=== PATIENT | female | born 1965 | race Caucasian/White ===

== ENCOUNTER → 2018-11-20 | Outpatient (CLI) | payer BC ==
--- NOTE | 2018-11-20 11:12 | CT ---
EXAMINATION TYPE: CT abdomen pelvis w con DATE OF EXAM: 11/20/2018 HISTORY: LLQ pain CT DLP: 1057.1mGycm Automated Exposure Control for Dose Reduction was Utilized. CONTRAST: CT scan of the abdomen and pelvis is performed with IV Contrast, patient injected with 100 mL of Isov ue 300. COMPARISON: None. FINDINGS: LUNG BASES: No significant abnormality is appreciated. LIVER/GB: Somewhat contracted gallbladder. PANCREAS: No significant abnormality is seen. SPLEEN: No significant abnormality is seen. ADRENALS: No significant abnormality is seen. KIDNEYS: Subcentimeter simple appearing cyst lower pole of the right kidney axial image 38 series 5 i s present. BOWEL: Oral contrast reaches level of rectum. No suspicious small or large bowel dilatation. Normal c ontrast-filled appendix ascends from cecum. No significant diverticular disease. Mild wall thickening in the sigmoid colon is present. UTERUS/ADNEXA: Uterus is surgically absent or markedly atrophic. Scattered pelvic phleboliths. Left o vary is 1.9 cm round low dense lesion on axial image 65. The remnant right ovary normal in size image 61. LYMPH NODES: No greater than 1cm abdominal or pelvic lymph nodes are appreciated. OSSEOUS STRUCTURES: No significant abnormality is seen. OTHER: No significant additional abnormality is seen. IMPRESSION: 1. No CT evidence for diverticulosis or acute diverticulitis. Possible mild colitis of the sigmoid co nanette of the pelvis. Correlate clinically. 2. There is 1.9 cm rounded low dense lesion left ovary, this is abnormal finding in a postmenopausal female. Follow-up pelvic ultrasound advised to better evaluate and characterize.
== END ==
LOC: RADCTMAIN 07:43 → MERGE 09:20
PROVIDERS: ATTEND Internal Medicine
DX: N83.202 Unspecified ovarian cyst, left side (principal); Z78.0 Asymptomatic menopausal state; Z88.5 Allergy status to narcotic agent
CPT/HCPCS: 74177; Q9967 ×2

== ENCOUNTER 2020-05-12 13:54 | Emergency (ER) | payer BC ==
[2020-05-12 13:59] VITALS: BP 134/84; PULSE 60; RESP 18; TEMP 97.9
[2020-05-12 14:42] LABS: Appearance,Urine Cloudy (Clear); Bacteria,Urine Rare /hpf; Bilirubin,Urine Negative (Negative); Blood,Urine Negative (Negative); Color,Urine Yellow; Glucose,Urine (UA) Negative (Negative); Ketones,Urine 1+ (Negative); Leukocyte Esterase,Urine Negative (Negative); Mucus,Urine Rare /hpf; Nitrite,Urine Negative (Negative); Protein,Urine Negative (Negative); Specific Gravity,Urine 1.014 (1.001-1.035); Squamous Epithelial Cell,Urine <1 /hpf (0-4); Urobilinogen,Urine <2.0 mg/dL (<2.0); WBC,Urine 1 /hpf (0-5)
[2020-05-12] MEDS ORDERED: KETOROLAC 15 MG/ML 1 ML VIAL IVP STA (15:00)
[2020-05-12] MEDS ORDERED: ONDANSETRON 4 MG/2 ML VIAL IVP STA (15:00)
--- NOTE | 2020-05-12 15:03 | ED ---
Abdominal Pain HPI - General Chief Complaint: Abdominal Pain Stated Complaint: Abdominal Pain,[place] Time Seen by Provider: 05/12/20 14:47 Source: patient Mode of arrival: ambulatory Limitations: no limitations - History of Present Illness Initial Comments: D4-year[age] female history of ovarian cysts, hypertension and previous kidney stone presenting today for chief complaint of left flank pain. Patient states for the last week and a half she has had left side mid back pain, that sometimes radiates towards the abdomen. Patient states the pain is at maximal intensity she has nausea and occasional vomiting. Patient states the pain is colicky comi ng and going and not always present. Patient states she has had a little bit of frequency but denies dysuria or urgency. Patient denies noting hematuria--states she drinks a lot of fluids daily. Patient denies any fevers. Patient denies a chest pain shortness of breath. Patient states she did have her first dose of the Desiree seen on 05/03/2020. Patient has no additional complaints nor concerns and appears well nontoxic on arrival, no distress. The UA done in advanced triage appears overall unremarkable. - Related Data Previous Rx's Medication Instructions Recorded Amoxic-Pot Clav 875-125Mg 1 tab PO Q12HR 10 Days #20 tab 05/12/20 [Augmentin 875-125] Ondansetron Odt [Zofran Odt] 4 mg PO Q8HR PRN 7 Days #21 tab 05/12/20 Allergies Allergy/AdvReac Type Severity Reaction Status Date / Time No Known Allergies Allergy Verified 05/12/20 13:59 Review of Systems ROS Statement: Those systems with pertinent positive or pertinent negative responses have been documented in the HPI. ROS Other: All systems not noted in ROS Statement are negative. Past Medical History Past Medical History: Hypertension Additional Past Medical History / Comment(s): ovarian cyst, History of Any Multi-Drug Resistant Organisms: None Reported Past Surgical History: Hysterectomy Additional Past Surgical History / Comment(s): left fifth finger, Past Psychological History: Depression Smoking Status: Current every day smoker Past Alcohol Use History: None Reported Past Drug Use History: Marijuana General Exam - General Exam Comments Initial Comments: General: The patient is awake and alert, in no distress Eye: +3 mm pupils are equal, round and reactive to light, extra-ocular movements are intact. No nystagmus. There is normal conjunctiva bilaterally. No signs of icterus. Ears, nose, mouth and throat: There are moist mucous membranes and no oral lesions. Neck: The neck is supple, there is no tenderness or JVD. Cardiovascular: There is a regular rate and rhythm. No murmur, rub or gallop is appreciated. Respiratory: Lungs are clear to auscultation, respirations are non-labored, breath sounds are equal. No wheezes, stridor, rales, or rhonchi. Gastrointestinal: Soft, non-distended, mild LLQ tenderness to palpation of the abdomen without masses or organomegaly noted. There is no rebound or guarding present. No CVA tenderness. Musculoskeletal: Normal ROM, no tenderness. Strength 5/5. Sensation intact. Radial pulses equal bilaterally 2+. Neurological: A&O x 3. CN II-XII intact grossly, There are no obvious motor or sensory deficits. Coordination appears grossly intact. Speech is normal. Skin: Skin is warm and dry and no rashes or lesions are noted. Psychiatric: Cooperative, appropriate mood & affect, normal judgment. Limitations: no limitations Course Vital Signs 05/12/20 13:55 Temperature 97.9 F Pulse Rate 60 Respiratory 18 Rate Blood Pressure 134/84 O2 Sat by Pulse 95 Oximetry Medical Decision Making - Medical Decision Making Mild leukocytosis as well as mild hyponatremia. Otherwise laboratory studies are stable with no critical values. Patient CT abdomen and pelvis reveals a uncomplicated colitis. Patient's pain controlled she appears comfortable at nausea. She has no fevers. Denies any bloody diarrhea. 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 Patient is agreeable to this care plan as well as discharge at this time. Return parameters as well as competitions of colitis were discussed at length with patient verbalized understanding and was discharged appearing well - Lab Data Result diagrams: 05/12/20 15:10 05/12/20 15:10 Lab Results 05/12/20 05/12/20 05/12/20 Range/Units 14:23 15:10 15:10 WBC 13.0 H (3.8-10.6) k/uL RBC 4.70 (3.80-5.40) m/uL Hgb 14.8 (11.4-16.0) gm/dL Hct 44.0 (34.0-46.0) % MCV 93.5 (80.0-100.0) fL MCH 31.5 (25.0-35.0) pg MCHC 33.7 (31.0-37.0) g/dL RDW 13.5 (11.5-15.5) % Plt Count 448 (150-450) k/uL MPV 8.3 Neutrophils % 84 % Lymphocytes % 11 % Monocytes % 3 % Eosinophils % 1 % Basophils % 0 % Neutrophils # 10.8 H (1.3-7.7) k/uL Lymphocytes # 1.4 (1.0-4.8) k/uL Monocytes # 0.4 (0-1.0) k/uL Eosinophils # 0.2 (0-0.7) k/uL Basophils # 0.1 (0-0.2) k/uL Sodium 133 L (137-145) mmol/L Potassium 3.5 (3.5-5.1) mmol/L Chloride 93 L (98-107) mmol/L Carbon Dioxide 29 (22-30) mmol/L Anion Gap 11 mmol/L BUN 10 (7-17) mg/dL Creatinine 0.55 (0.52-1.04) mg/dL Est GFR (CKD-EPI)AfAm >90 (>60 ml/min/1.73 sqM) Est GFR (CKD-EPI)NonAf >90 (>60 ml/min/1.73 sqM) Glucose 123 H (74-99) mg/dL Calcium 10.5 H (8.4-10.2) mg/dL Total Bilirubin 0.6 (0.2-1.3) mg/dL AST 30 (14-36) U/L ALT 20 (4-34) U/L Alkaline Phosphatase 72 (38-126) U/L Total Protein 8.8 H (6.3-8.2) g/dL Albumin 5.4 H (3.5-5.0) g/dL Urine Color Yellow Urine Appearance Cloudy H (Clear) Urine pH 6.0 (5.0-8.0) Ur Specific [place] 1.014 (1.001-1.035) Urine Protein Negative (Negative) Urine Glucose (UA) Negative (Negative) Urine Ketones 1+ H (Negative) Urine Blood Negative (Negative) Urine Nitrite Negative (Negative) Urine Bilirubin Negative (Negative) Urine Urobilinogen <2.0 (<2.0) mg/dL Ur Leukocyte Esterase Negative (Negative) Urine WBC 1 (0-5) /hpf Ur Squamous Epith Cells <1 (0-4) /hpf Urine Bacteria Rare H (None) /hpf Urine Mucus Rare H (None) /hpf Disposition Clinical Impression: Colitis, Abdominal pain, Nausea Disposition: HOME SELF-CARE Condition: Good Instructions (If sedation given, give patient instructions): Colitis (ED) Additional Instructions: Please use medication as discussed. Please follow-up with family doctor in the next 2 days, please follow-up with GI in the next 2-3 days. Please return to emergency room if the symptoms increase or worsen or for any other concerns. Prescriptions: Amoxic-Pot Clav 875-125Mg [Augmentin 875-125] 1 tab PO Q12HR 10 Days #20 tab Ondansetron Odt [Zofran Odt] 4 mg PO Q8HR PRN 7 Days #21 tab PRN Reason: Nausea Is patient prescribed a controlled substance at d/c from ED?: No Referrals: Dina aC MD [STAFF PHYSICIAN] - 1-2 days Time of Disposition: 15:46
[2020-05-12 15:22] LABS: Basophils # (A) 0.1 k/uL (0-0.2); Basophils % (A) 0 %; Eosinophils # (A) 0.2 k/uL (0-0.7); Eosinophils % (A) 1 %; HGB 14.8 gm/dL (11.4-16.0); Lymphocytes # (A) 1.4 k/uL (1.0-4.8); Lymphocytes % (A) 11 %; MCH 31.5 pg (25.0-35.0); MCHC 33.7 g/dL (31.0-37.0); MCV 93.5 fL (80.0-100.0); Mean Platelet Volume 8.3; Monocytes # (A) 0.4 k/uL (0-1.0); Monocytes % (A) 3 %; Neutrophils # (A) 10.8 k/uL (1.3-7.7); Neutrophils % (A) 84 %; Platelet Count 448 k/uL (150-450); RDW 13.5 % (11.5-15.5)
[2020-05-12 15:32] LABS: ALT 20 U/L (4-34); AST 30 U/L (14-36); African American GFR (CKD) >90 (>60 ml/min/1.73 sqM); Albumin 5.4 g/dL (3.5-5.0); Alkaline Phosphatase 72 U/L (38-126); Anion Gap 11 mmol/L; Blood Urea Nitrogen 10 mg/dL (7-17); Calcium 10.5 mg/dL (8.4-10.2); Carbon Dioxide 29 mmol/L (22-30); Chloride 93 mmol/L (98-107); Glucose 123 mg/dL (74-99); Non-African American GFR(CKD) >90 (>60 ml/min/1.73 sqM); Potassium 3.5 mmol/L (3.5-5.1); Sodium 133 mmol/L (137-145); Total Bilirubin 0.6 mg/dL (0.2-1.3); Total Protein 8.8 g/dL (6.3-8.2)
--- NOTE | 2020-05-12 15:43 | CT ---
EXAMINATION TYPE: CT abdomen pelvis w con DATE OF EXAM: 05/12/2020 HISTORY: left flank pain CT DLP: 1110.7mGycm Automated Exposure Control for Dose Reduction was Utilized. CONTRAST: CT scan of the abdomen and pelvis is performed without oral but with IV Contrast, patient injected wi th 100 mL of Isovue 300. COMPARISON: CT abdomen and pelvis November 20, 2018 FINDINGS: LUNG BASES: No significant abnormality is appreciated. LIVER/GB: No significant abnormality is seen. PANCREAS: No significant abnormality is seen. SPLEEN: No significant abnormality is seen. ADRENALS: No significant abnormality is seen. KIDNEYS: Subcentimeter simple appearing cyst lower pole of the right kidney axial image 35 series 301 is stable. Similar size lesion noted image 29 upper to mid pole of the right kidney current study is new from prior still presumed benign. BOWEL: Suboptimal evaluation of bowel without enteric contrast. Fluid in mildly distended stomach. No suspicious small or large bowel dilatation. Slightly wandering cecum into the right mid abdomen ante riorly coronal image 28. Mild to moderate wall thickening in the transverse colon extends into the le ft colon and sigmoid colon. No significant surrounding fat stranding. UTERUS/ADNEXA: Uterus is surgically absent or markedly atrophic. Scattered left-sided pelvic phleboli ths redemonstrated. LYMPH NODES: No greater than 1cm abdominal or pelvic lymph nodes are appreciated. OSSEOUS STRUCTURES: No significant abnormality is seen. OTHER: No significant additional abnormality is seen. IMPRESSION: Possible mild uncomplicated acute colitis mid to distal colon versus product of poor distention other ambrocio no acute findings identified.
[2020-05-12] MEDS ORDERED: AMOXIC-POT CLAV 875MG STARTER PACK 2 TAB BTL PO STA (15:44)
== END 2020-05-12 15:58 | disposition home or self-care (01) ==
LOC: EC 13:54
DX: K52.9 Noninfective gastroenteritis and colitis, unspecified (principal); D72.829 Elevated white blood cell count, unspecified; E87.1 Hypo-osmolality and hyponatremia; I10 Essential (primary) hypertension; F17.200 Nicotine dependence, unspecified, uncomplicated; F12.90 Cannabis use, unspecified, uncomplicated; Z90.710 Acquired absence of both cervix and uterus
CPT/HCPCS: 36415; 80053; 85025; 81001; 74177; 99284; 96374; 96375; J2405; J1885; Q9967; 93005

== ENCOUNTER 2022-08-24 17:17 | Inpatient (IN) | payer BC ==
[2022-08-24] MEDS ORDERED: SODIUM CHLORIDE 0.9% 1,000 ML IV ONE (18:49)
[2022-08-24 19:10] LABS: Basophils # (A) 0.1 k/uL (0-0.2); Basophils % (A) 1 %; Eosinophils # (A) 0.1 k/uL (0-0.7); Eosinophils % (A) 1 %; HCT 46.8 % (34.0-46.0); HGB 15.5 gm/dL (11.4-16.0); Lymphocytes # (A) 2.2 k/uL (1.0-4.8); Lymphocytes % (A) 18 %; MCH 32.3 pg (25.0-35.0); MCHC 33.1 g/dL (31.0-37.0); MCV 97.4 fL (80.0-100.0); Mean Platelet Volume 8.4; Monocytes % (A) 8 %; Neutrophils # (A) 9.1 k/uL (1.3-7.7); Neutrophils % (A) 72 %; Platelet Count 414 k/uL (150-450); RDW 14.2 % (11.5-15.5); WBC 12.6 k/uL (3.8-10.6)
--- NOTE | 2022-08-24 19:11 | ED ---
General Adult HPI - General Chief complaint: Psychiatric Symptoms Stated complaint: mental health Time Seen by Provider: 08/24/22 18:31 Source: patient, family, RN notes reviewed, old records reviewed Mode of arrival: ambulatory Limitations: no limitations - History of Present Illness Initial comments: Patient is a 57-year-old female with past medical history remarkable for hypertension, who presents emergency Department for altered mental status. Has been an ongoing issue for the patient for multiple months, however was worse today and over the last week. Patient has been having delusions per family. Dictation the patient for psych evaluation. She states there are which is after her and she must protect the Pretty spray pain at the house as well as around it lately. She declines that anything is wrong. Has flight of ideas at this time. Denies any suicidal or homicidal ideations, attempts complaints. Patient is cooperative. No acute complaints. Presents for further evaluation. No known psych history per family. No known drug abuse per family or patient. No new medications. No new exposures. - Related Data Home Medications Medication Instructions Recorded Confirmed Loratadine [Claritin] 10 mg PO DAILY 08/24/22 08/24/22 Multivitamins, Thera [Multivitamin 1 tab PO DAILY 08/24/22 08/24/22 (formulary)] Sertraline [Zoloft] 100 mg PO DAILY 08/24/22 08/24/22 Allergies Allergy/AdvReac Type Severity Reaction Status Date / Time No Known Allergies Allergy Verified 08/24/22 18:35 Review of Systems ROS Statement: Those systems with pertinent positive or pertinent negative responses have been documented in the HPI. Review of Systems: CONST: Denies fever EYES: Denies blurry vision ENT: Denies nasal congestion C/V: Denies Chest pain RESP: Denies shortness of breath GI: Denies abdominal pain : Denies dysuria SKIN: Denies rash. MSK: Denies joint pain. NEURO: Denies headache PSYCH: Denies suicidal and homicidal ideations/plans/attempts. Denies visual or auditory hallucinations. ROS Other: All systems not noted in ROS Statement are negative. Past Medical History Past Medical History: Hypertension Additional Past Medical History / Comment(s): ovarian cyst, History of Any Multi-Drug Resistant Organisms: None Reported Past Surgical History: Hysterectomy Additional Past Surgical History / Comment(s): left fifth finger, Past Psychological History: Depression Smoking Status: Current every day smoker Past Alcohol Use History: None Reported Past Drug Use History: Marijuana General Exam - General Exam Comments Initial Comments: General: Appears in no acute distress. HEAD: Normal with no signs of head trauma. EYES: PERRLA, EOMI, conjunctiva normal, no discharge. Pupils are 3 mm and equal bilaterally. ENT: Hearing grossly intact, normal oropharynx. RESPIRATORY: Clear breath sounds bilaterally. No wheezes, rales, or rhonchi. C/V: Regular rate and rhythm. S1 and S2 auscultated, , peripheral pulses 2+ and intact throughout ABD: Abd is soft, nontender, nondistended EXT: Normal range of motion, no obvious deformity SKIN: No rashes or lesions observed on exposed skin. NEURO: Alert and oriented 4. No focal sensory strength deficits. Cranial nerves II through XII intact. GCS of 15. NIH is 0. Does have flight of ideas when speaking with her. Appears to have delusions as well. Limitations: no limitations Course Vital Signs 08/24/22 08/24/22 17:23 21:24 Temperature 98.6 F Pulse Rate 80 75 Respiratory 18 18 Rate Blood Pressure 132/78 132/77 O2 Sat by Pulse 98 97 Oximetry Medical Decision Making - Medical Decision Making Was pt. sent in by a medical professional or institution (, PA, CAUST[employer] LOADER, urgent care, hospital, or [facility]...) When possible be specific @ -No Did you speak to anyone other than the patient for history (EMS, parent, family, police, friend...)? What history was obtained from this source @ -Discussed with patient's daughter as well as who provide most of the patient's history regarding the delusions and behavior over the last few months. Did you review nursing and triage notes (agree or disagree)? Why? @ -I reviewed and agree with nursing and triage notes Were old charts reviewed (outside hosp., previous admission, EMS record, old EKG, old radiological studies, urgent care reports/EKG's, [facility] records)? Report findings @ -No old charts were reviewed Differential Diagnosis (chest pain, altered mental status, abdominal pain women, abdominal pain men, vaginal bleeding, weakness, fever, dyspnea, syncope, headache, dizziness, GI bleed, back pain, seizure, CVA, palpatations, mental health, musculoskeletal)? @ -Differential Mental Health Depression, anxiety, bipolar, psychosis, schizophrenia, borderline personality, situational depression, adjustment disorder, behavioral disorder, brain tumor, malingering, substance abuse, encephalopathy, medication reaction, dementia, hypothyroidism, degenerative neurologic disorder, lupus.... This is not meant to be all-inclusive listDifferential Altered Mental Status: Hypoglycemia, DKA, hypercapnia, ETOH, overdose, CO poisoning, trauma, myxedema coma, HTN encephalopathy, infection, encephalitis, psychosis, intercranial hemorrhage, hepatic encephalopathy, meningitis, CVA, this is not meant to be an all-inclusive list EKG interpreted by me (3pts min.). @ -As above X-rays interpreted by me (1pt min.). @ -Chest x-ray reveals no obvious acute cardiopulmonary process. CT interpreted by me (1pt min.). @ -CT brain reveals no obvious acute intracranial process. U/S interpreted by me (1pt. min.). @ -None done What testing was considered but not performed or refused? (CT, X-rays, U/S, labs)? Why? @ -None What meds were considered but not given or refused? Why? @ -None Did you discuss the management of the patient with other professionals (professionals i.e. , PA, CAUSTICS LOADER, lab, RT, psych nurse, social science research assistant, cafe server, teacher, contracts officer, high risk case manager)? Give summary @ -EPS notified of the consult. Was smoking cessation discussed for >3mins.? @ -No Was critical care preformed (if so, how long)? @ -No Were there social determinants of health that impacted care today? How? (Homelessness, low income, unemployed, alcoholism, drug addiction, transportation, low edu. Level, literacy, decrease access to med. care, detention, rehab)? @ -No Was there de-escalation of care discussed even if they declined (Discuss DNR or withdrawal of care, Hospice)? DNR status @ -No What co-morbidities impacted this encounter? (DM, HTN, Smoking, COPD, CAD, Cancer, CVA, ARF, Chemo, Hep., AIDS, mental health diagnosis, sleep apnea, morbid obesity)? @ -None Was patient admitted / discharged? Hospital course, mention meds given and route, prescriptions, significant lab abnormalities, going to OR and other pertinent info. @ -Based on the patient's presentation and physical exam, presents with delusions of which is better after her and having to protect her house. She appears to be acutely psychotic. She was placed in green scrubs. Sitter was ordered. Plans are remarkable for a slight leukocytosis of 12 which is likely reactive. Remainder of the labs are reviewed. Alcohol is negative. UDS positive for marijuana. Imaging unremarkable including CT brain. EKG within acceptable limits. Vital signs within acceptable limits. At this time patient is medically cleared for evaluation by psychiatry. Disposition is pending psychiatric evaluation. EPS is notified. I updated family and patient and there were in agreement this plan. Patient is petitioned. Clinical certificate was completed by myself after I was notified by EPS for the patient be admitted to inpatient psychiatry. Patient admitted in stable condition. Undiagnosed new problem with uncertain prognosis? @ -No Drug Therapy requiring intensive monitoring for toxicity (Heparin, Nitro, Insulin, Cardizem)? @ -No Were any procedures done? @ -No Diagnosis/symptom? @ -Acute psychosis, encounter for psychiatric evaluation, delusions Acute, or Chronic, or Acute on Chronic? @ -Acute Uncomplicated (without systemic symptoms) or Complicated (systemic symptoms)? @ -Complicated Side effects of treatment? @ -No Exacerbation, Progression, or Severe Exacerbation? @ -No Poses a threat to life or bodily function? How? (Chest pain, [place], [place], pneumonia, PE, COPD, DKA, ARF, appy, cholecystitis, CVA, Diverticulitis, Homicidal, Suicidal, threat to staff... and all critical care pts) @ -No - Lab Data Result diagrams: 08/24/22 18:52 08/24/22 18:52 Lab Results 08/24/22 08/24/22 08/24/22 Range/Units 18:52 18:52 18:52 WBC 12.6 H (3.8-10.6) k/uL RBC 4.80 (3.80-5.40) m/uL Hgb 15.5 (11.4-16.0) gm/dL Hct 46.8 H (34.0-46.0) % MCV 97.4 (80.0-100.0) fL MCH 32.3 (25.0-35.0) pg MCHC 33.1 (31.0-37.0) g/dL RDW 14.2 (11.5-15.5) % Plt Count 414 (150-450) k/uL MPV 8.4 Neutrophils % 72 % Lymphocytes % 18 % Monocytes % 8 % Eosinophils % 1 % Basophils % 1 % Neutrophils # 9.1 H (1.3-7.7) k/uL Lymphocytes # 2.2 (1.0-4.8) k/uL Monocytes # 1.0 (0-1.0) k/uL Eosinophils # 0.1 (0-0.7) k/uL Basophils # 0.1 (0-0.2) k/uL PT 9.8 (9.0-12.0) sec INR 0.9 (<1.2) APTT 23.8 (22.0-30.0) sec VBG pH (7.31-7.41) VBG pCO2 (37-51) mmHg VBG HCO3 (24-28) mmol/L Sodium (137-145) mmol/L Potassium (3.5-5.1) mmol/L Chloride (98-107) mmol/L Carbon Dioxide (22-30) mmol/L Anion Gap mmol/L BUN (7-17) mg/dL Creatinine (0.52-1.04) mg/dL Est GFR (CKD-EPI)AfAm (>60 ml/min/1.73 sqM) Est GFR (CKD-EPI)NonAf (>60 ml/min/1.73 sqM) Glucose (74-99) mg/dL Calcium (8.4-10.2) mg/dL Total Bilirubin (0.2-1.3) mg/dL AST (14-36) U/L ALT (4-34) U/L Alkaline Phosphatase (38-126) U/L Ammonia (<30) umol/L Total Protein (6.3-8.2) g/dL Albumin (3.5-5.0) g/dL Urine Color Urine Appearance (Clear) Urine pH (5.0-8.0) Ur Specific [place] (1.001-1.035) Urine Protein (Negative) Urine Glucose (UA) (Negative) Urine Ketones (Negative) Urine Blood (Negative) Urine Nitrite (Negative) Urine Bilirubin (Negative) Urine Urobilinogen (<2.0) mg/dL Ur Leukocyte Esterase (Negative) Urine RBC (0-5) /hpf Urine WBC (0-5) /hpf Ur Squamous Epith Cells (0-4) /hpf Calcium Oxalate Crystal (None) /hpf Hyaline Casts (0-2) /lpf Urine Mucus (None) /hpf Urine Opiates Screen Not Detected (NotDetected) Ur Oxycodone Screen Not Detected (NotDetected) Urine Methadone Screen Not Detected (NotDetected) Ur Propoxyphene Screen Not Detected (NotDetected) Ur Barbiturates Screen Not Detected (NotDetected) U Tricyclic Antidepress Not Detected (NotDetected) Ur Phencyclidine Scrn Not Detected (NotDetected) Ur Amphetamines Screen Not Detected (NotDetected) U Methamphetamines Scrn Not Detected (NotDetected) U Benzodiazepines Scrn Not Detected (NotDetected) Urine Cocaine Screen Not Detected (NotDetected) U Marijuana (THC) Screen Detected H (NotDetected) Serum Alcohol mg/dL Influenza Type A (PCR) (Not Detectd) Influenza Type B (PCR) (Not Detectd) RSV (PCR) (Not Detectd) SARS-CoV-2 (PCR) (Not Detectd) 08/24/22 08/24/22 08/24/22 Range/Units 18:52 18:52 18:52 WBC (3.8-10.6) k/uL RBC (3.80-5.40) m/uL Hgb (11.4-16.0) gm/dL Hct (34.0-46.0) % MCV (80.0-100.0) fL MCH (25.0-35.0) pg MCHC (31.0-37.0) g/dL RDW (11.5-15.5) % Plt Count (150-450) k/uL MPV Neutrophils % % Lymphocytes % % Monocytes % % Eosinophils % % Basophils % % Neutrophils # (1.3-7.7) k/uL Lymphocytes # (1.0-4.8) k/uL Monocytes # (0-1.0) k/uL Eosinophils # (0-0.7) k/uL Basophils # (0-0.2) k/uL PT (9.0-12.0) sec INR (<1.2) APTT (22.0-30.0) sec VBG pH (7.31-7.41) VBG pCO2 (37-51) mmHg VBG HCO3 (24-28) mmol/L Sodium 139 (137-145) mmol/L Potassium 4.2 (3.5-5.1) mmol/L Chloride 103 (98-107) mmol/L Carbon Dioxide 21 L (22-30) mmol/L Anion Gap 15 mmol/L BUN 16 (7-17) mg/dL Creatinine 0.87 (0.52-1.04) mg/dL Est GFR (CKD-EPI)AfAm 86 (>60 ml/min/1.73 sqM) Est GFR (CKD-EPI)NonAf 74 (>60 ml/min/1.73 sqM) Glucose 87 (74-99) mg/dL Calcium 10.3 H (8.4-10.2) mg/dL Total Bilirubin 1.2 (0.2-1.3) mg/dL AST 45 H (14-36) U/L ALT 28 (4-34) U/L Alkaline Phosphatase 54 (38-126) U/L Ammonia <9 (<30) umol/L Total Protein 8.3 H (6.3-8.2) g/dL Albumin 5.1 H (3.5-5.0) g/dL Urine Color Light Yellow Urine Appearance Clear (Clear) Urine pH 5.0 (5.0-8.0) Ur Specific [place] 1.008 (1.001-1.035) Urine Protein Negative (Negative) Urine Glucose (UA) Negative (Negative) Urine Ketones 2+ H (Negative) Urine Blood Small H (Negative) Urine Nitrite Negative (Negative) Urine Bilirubin Negative (Negative) Urine Urobilinogen <2.0 (<2.0) mg/dL Ur Leukocyte Esterase Negative (Negative) Urine RBC 1 (0-5) /hpf Urine WBC 1 (0-5) /hpf Ur Squamous Epith Cells <1 (0-4) /hpf Calcium Oxalate Crystal Rare H (None) /hpf Hyaline Casts 4 H (0-2) /lpf Urine Mucus Rare H (None) /hpf Urine Opiates Screen (NotDetected) Ur Oxycodone Screen (NotDetected) Urine Methadone Screen (NotDetected) Ur Propoxyphene Screen (NotDetected) Ur Barbiturates Screen (NotDetected) U Tricyclic Antidepress (NotDetected) Ur Phencyclidine Scrn (NotDetected) Ur Amphetamines Screen (NotDetected) U Methamphetamines Scrn (NotDetected) U Benzodiazepines Scrn (NotDetected) Urine Cocaine Screen (NotDetected) U Marijuana (THC) Screen (NotDetected) Serum Alcohol <10 mg/dL Influenza Type A (PCR) (Not Detectd) Influenza Type B (PCR) (Not Detectd) RSV (PCR) (Not Detectd) SARS-CoV-2 (PCR) (Not Detectd) 08/24/22 08/24/22 Range/Units 18:52 18:52 WBC (3.8-10.6) k/uL RBC (3.80-5.40) m/uL Hgb (11.4-16.0) gm/dL Hct (34.0-46.0) % MCV (80.0-100.0) fL MCH (25.0-35.0) pg MCHC (31.0-37.0) g/dL RDW (11.5-15.5) % Plt Count (150-450) k/uL MPV Neutrophils % % Lymphocytes % % Monocytes % % Eosinophils % % Basophils % % Neutrophils # (1.3-7.7) k/uL Lymphocytes # (1.0-4.8) k/uL Monocytes # (0-1.0) k/uL Eosinophils # (0-0.7) k/uL Basophils # (0-0.2) k/uL PT (9.0-12.0) sec INR (<1.2) APTT (22.0-30.0) sec VBG pH 7.31 (7.31-7.41) VBG pCO2 44 (37-51) mmHg VBG HCO3 22 L (24-28) mmol/L Sodium (137-145) mmol/L Potassium (3.5-5.1) mmol/L Chloride (98-107) mmol/L Carbon Dioxide (22-30) mmol/L Anion Gap mmol/L BUN (7-17) mg/dL Creatinine (0.52-1.04) mg/dL Est GFR (CKD-EPI)AfAm (>60 ml/min/1.73 sqM) Est GFR (CKD-EPI)NonAf (>60 ml/min/1.73 sqM) Glucose (74-99) mg/dL Calcium (8.4-10.2) mg/dL Total Bilirubin (0.2-1.3) mg/dL AST (14-36) U/L ALT (4-34) U/L Alkaline Phosphatase (38-126) U/L Ammonia (<30) umol/L Total Protein (6.3-8.2) g/dL Albumin (3.5-5.0) g/dL Urine Color Urine Appearance (Clear) Urine pH (5.0-8.0) Ur Specific [place] (1.001-1.035) Urine Protein (Negative) Urine Glucose (UA) (Negative) Urine Ketones (Negative) Urine Blood (Negative) Urine Nitrite (Negative) Urine Bilirubin (Negative) Urine Urobilinogen (<2.0) mg/dL Ur Leukocyte Esterase (Negative) Urine RBC (0-5) /hpf Urine WBC (0-5) /hpf Ur Squamous Epith Cells (0-4) /hpf Calcium Oxalate Crystal (None) /hpf Hyaline Casts (0-2) /lpf Urine Mucus (None) /hpf Urine Opiates Screen (NotDetected) Ur Oxycodone Screen (NotDetected) Urine Methadone Screen (NotDetected) Ur Propoxyphene Screen (NotDetected) Ur Barbiturates Screen (NotDetected) U Tricyclic Antidepress (NotDetected) Ur Phencyclidine Scrn (NotDetected) Ur Amphetamines Screen (NotDetected) U Methamphetamines Scrn (NotDetected) U Benzodiazepines Scrn (NotDetected) Urine Cocaine Screen (NotDetected) U Marijuana (THC) Screen (NotDetected) Serum Alcohol mg/dL Influenza Type A (PCR) Not Detected (Not Detectd) Influenza Type B (PCR) Not Detected (Not Detectd) RSV (PCR) Not Detected (Not Detectd) SARS-CoV-2 (PCR) Not Detected (Not Detectd) - EKG Data -: EKG Interpreted by Me EKG Comments: 12-lead Electrocardiogram Interpretation Note EKG was reviewed and interpreted by myself. 12-lead ECG performed at 2022 is interpreted by me as revealing normal sinus rhythm at a rate of 61 beats per minute. Incomplete right bundle-branch block. Munday is normal. [place] interval is 165 ms, QRS is 98 ms, QTc is 446 ms.. There were no ST or T wave abnormalities to suggest myocardial ischemia or injury. R wave progression across the precordium was satisfactory. By my interpretation this EKG is non-diagnostic for acute ischemia. Disposition Clinical Impression: Delusions, Acute psychosis, Encounter for psychological evaluation Disposition: TRANSFER TO PSYCH HOSP/UNIT Condition: Stable Referrals: Yohana Nguyen, KORTNEY [Primary Care Provider] - 1-2 days Time of Disposition: 22:20
[2022-08-24 19:13] LABS: VBG PH 7.31 (7.31-7.41)
[2022-08-24 19:18] LABS: Appearance,Urine Clear (Clear); Bilirubin,Urine Negative (Negative); Blood,Urine Small (Negative); Calcium Oxalate Crystals,Urine Rare /hpf; Color,Urine Light Yellow; Glucose,Urine (UA) Negative (Negative); Hyaline Casts,Urine 4 /lpf (0-2); Ketones,Urine 2+ (Negative); Leukocyte Esterase,Urine Negative (Negative); Mucus,Urine Rare /hpf; Nitrite,Urine Negative (Negative); Protein,Urine Negative (Negative); RBC,Urine 1 /hpf (0-5); Specific Gravity,Urine 1.008 (1.001-1.035); Squamous Epithelial Cell,Urine <1 /hpf (0-4); Urobilinogen,Urine <2.0 mg/dL (<2.0); WBC,Urine 1 /hpf (0-5)
[2022-08-24 19:26] LABS: Amphetamine Screen,Urine Not Detected (NotDetected); Barbiturate Screen,Urine Not Detected (NotDetected); Benzodiazepines Screen,Urine Not Detected (NotDetected); Cocaine Screen,Urine Not Detected (NotDetected); Methadone Screen, Urine Not Detected (NotDetected); Opiate Screen,Urine Not Detected (NotDetected); Oxycodone Screen, Urine Not Detected (NotDetected); Phencyclidine Screen,Urine Not Detected (NotDetected); Tricyclic Antidepressant,Urine Not Detected (NotDetected); Urn Cannabinoid Scrn Detected (NotDetected)
[2022-08-24 19:30] LABS: ALT 28 U/L (4-34); AST 45 U/L (14-36); African American GFR (CKD) 86 (>60 ml/min/1.73 sqM); Albumin 5.1 g/dL (3.5-5.0); Alcohol <10 mg/dL; Alkaline Phosphatase 54 U/L (38-126); Anion Gap 15 mmol/L; Blood Urea Nitrogen 16 mg/dL (7-17); Calcium 10.3 mg/dL (8.4-10.2); Carbon Dioxide 21 mmol/L (22-30); Chloride 103 mmol/L (98-107); Glucose 87 mg/dL (74-99); Non-African American GFR(CKD) 74 (>60 ml/min/1.73 sqM); Potassium 4.2 mmol/L (3.5-5.1); Sodium 139 mmol/L (137-145); Total Bilirubin 1.2 mg/dL (0.2-1.3); Total Protein 8.3 g/dL (6.3-8.2)
[2022-08-24 19:36] LABS: INR 0.9 (<1.2); Partial Thromboplastin Time 23.8 sec (22.0-30.0); Prothrombin Time 9.8 sec (9.0-12.0)
--- NOTE | 2022-08-24 19:39 | CT ---
EXAMINATION TYPE: CT brain wo con DATE OF EXAM: 08/24/2022 COMPARISON: None HISTORY: Altered mental status CT DLP: 1208.[address] of the brain was performed. The ventricles, basal cisterns and sulci overlying the cerebral convexities demonstrate mild enlargem ent. There is no evidence for intracranial hemorrhage or sulcal effacement. There is decreased attenuation about the periventricular white matter and deep white matter of both c erebral hemispheres, compatible with chronic small vessel ischemia. Differential diagnosis does inclu de demyelination. No mass effects are seen.No midline shift. Mucosal thickening left maxillary sinus. Osseous calvarium is intact. If symptoms persist consider MRI. IMPRESSION: 1. Age related atrophic and chronic small vessel ischemic change without acute intracranial process s een at this time.
--- NOTE | 2022-08-24 20:09 | XR ---
EXAMINATION TYPE: XR chest 2V DATE OF EXAM: 08/24/2022 COMPARISON: NONE HISTORY: Shortness of breath TECHNIQUE: Frontal and lateral views of the chest are obtained. FINDINGS: Scattered senescent parenchymal changes noted. Hyperinflation compatible with COPD. No evidence for infiltrate. No evidence for atelectasis. Heart size is stable. Mediastinal structures are stable and grossly unremarkable. No evidence for hilar prominence. Degenerative changes dorsal spine. IMPRESSION: 1. No evidence for acute pulmonary disease.
[2022-08-24] MEDS ORDERED: LORazepam 2 MG/ML INJ IM PRN (22:25)
[2022-08-24] MEDS ORDERED: MAGNESIUM HYDROXIDE 2,400 MG/30 ML CUP PO PRN (22:25)
[2022-08-24] MEDS ORDERED: MAG HYDROX/AL HYDROX/SIMETH 30 ML CUP PO PRN (22:25)
[2022-08-24] MEDS ORDERED: HALOPERIDOL LACTATE 5 MG/ML 1 ML VIAL IM PRN (22:25)
[2022-08-24] MEDS ORDERED: traZODone HCL 50 MG TAB PO PRN (22:25)
[2022-08-25 07:10] LABS: Basophils # (A) 0.1 k/uL (0-0.2); Basophils % (A) 1 %; Eosinophils # (A) 0.1 k/uL (0-0.7); Eosinophils % (A) 1 %; HCT 43.9 % (34.0-46.0); HGB 14.5 gm/dL (11.4-16.0); Lymphocytes # (A) 2.1 k/uL (1.0-4.8); Lymphocytes % (A) 29 %; MCH 32.6 pg (25.0-35.0); Mean Platelet Volume 8.1; Monocytes # (A) 0.6 k/uL (0-1.0); Monocytes % (A) 8 %; Neutrophils # (A) 4.2 k/uL (1.3-7.7); Neutrophils % (A) 58 %; Platelet Count 394 k/uL (150-450); RBC 4.43 m/uL (3.80-5.40); RDW 14.2 % (11.5-15.5); WBC 7.2 k/uL (3.8-10.6)
[2022-08-25 07:22] LABS: ALT 26 U/L (4-34); AST 37 U/L (14-36); African American GFR (CKD) >90 (>60 ml/min/1.73 sqM); Albumin 4.3 g/dL (3.5-5.0); Alkaline Phosphatase 47 U/L (38-126); Anion Gap 11 mmol/L; Blood Urea Nitrogen 10 mg/dL (7-17); Calcium 9.6 mg/dL (8.4-10.2); Carbon Dioxide 21 mmol/L (22-30); Chloride 108 mmol/L (98-107); Glucose 80 mg/dL (74-99); Non-African American GFR(CKD) >90 (>60 ml/min/1.73 sqM); Sodium 140 mmol/L (137-145)
[2022-08-25] MEDS: NICOTINE 21MG/24HR PATCH TRANSDERM SCH (09:15)
[2022-08-25] MEDS: haloperidoL 5 MG TAB PO PRN ×2 (10:16→22:34)
[2022-08-25] MEDS: hydrOXYzine HCL 25 MG TAB PO PRN (10:16)
[2022-08-25] MEDS ORDERED: PALIPERIDONE 3 MG TAB.ER.24 PO STA (11:26)
--- NOTE | 2022-08-25 11:33 | P.HP ---
Psychiatric H&P - . H&P Date: 08/25/22 History & Physical: Allergies Allergy/AdvReac Type Severity Reaction Status Date / Time No Known Allergies Allergy Verified 08/24/22 18:35 Vital Signs Temp 97.3 F L 08/25/22 00:15 Pulse 59 L 08/25/22 00:15 Resp 18 08/25/22 00:15 BP 131/84 08/25/22 00:15 Pulse Ox 97 08/25/22 00:15 FiO2 Intake & Output 08/24/22 08/25/22 08/25/22 18:59 06:59 18:59 Weight 64.41 kg 59.7 kg Laboratory Last Values WBC 7.2 k/uL (3.8-10.6) 08/25/22 06:27 RBC 4.43 m/uL (3.80-5.40) 08/25/22 06:27 Hgb 14.5 gm/dL (11.4-16.0) 08/25/22 06:27 Hct 43.9 % (34.0-46.0) 08/25/22 06:27 MCV 99.0 fL (80.0-100.0) 08/25/22 06:27 MCH 32.6 pg (25.0-35.0) 08/25/22 06:27 MCHC 33.0 g/dL (31.0-37.0) 08/25/22 06:27 RDW 14.2 % (11.5-15.5) 08/25/22 06:27 Plt Count 394 k/uL (150-450) 08/25/22 06:27 MPV 8.1 08/25/22 06:27 Neutrophils % 58 % 08/25/22 06:27 Lymphocytes % 29 % 08/25/22 06:27 Monocytes % 8 % 08/25/22 06:27 Eosinophils % 1 % 08/25/22 06:27 Basophils % 1 % 08/25/22 06:27 Neutrophils # 4.2 k/uL (1.3-7.7) 08/25/22 06:27 Lymphocytes # 2.1 k/uL (1.0-4.8) 08/25/22 06:27 Monocytes # 0.6 k/uL (0-1.0) 08/25/22 06:27 Eosinophils # 0.1 k/uL (0-0.7) 08/25/22 06:27 Basophils # 0.1 k/uL (0-0.2) 08/25/22 06:27 PT 9.8 sec (9.0-12.0) 08/24/22 18:52 INR 0.9 (<1.2) 08/24/22 18:52 APTT 23.8 sec (22.0-30.0) 08/24/22 18:52 VBG pH 7.31 (7.31-7.41) 08/24/22 18:52 VBG pCO2 44 mmHg (37-51) 08/24/22 18:52 VBG HCO3 22 mmol/L (24-28) L 08/24/22 18:52 Sodium 140 mmol/L (137-145) 08/25/22 06:27 Potassium 4.0 mmol/L (3.5-5.1) 08/25/22 06:27 Chloride 108 mmol/L (98-107) H 08/25/22 06:27 Carbon Dioxide 21 mmol/L (22-30) L 08/25/22 06:27 Anion Gap 11 mmol/L 08/25/22 06:27 BUN 10 mg/dL (7-17) 08/25/22 06:27 Creatinine 0.59 mg/dL (0.52-1.04) 08/25/22 06:27 Est GFR (CKD-EPI)AfAm >90 (>60 ml/min/1.73 sqM) 08/25/22 06:27 Est GFR (CKD-EPI)NonAf >90 (>60 ml/min/1.73 sqM) 08/25/22 06:27 Glucose 80 mg/dL (74-99) 08/25/22 06:27 Calcium 9.6 mg/dL (8.4-10.2) 08/25/22 06:27 Total Bilirubin 1.0 mg/dL (0.2-1.3) 08/25/22 06:27 AST 37 U/L (14-36) H 08/25/22 06:27 ALT 26 U/L (4-34) 08/25/22 06:27 Alkaline Phosphatase 47 U/L (38-126) 08/25/22 06:27 Ammonia <9 umol/L (<30) 08/24/22 18:52 Total Protein 7.0 g/dL (6.3-8.2) 08/25/22 06:27 Albumin 4.3 g/dL (3.5-5.0) 08/25/22 06:27 TSH 1.680 mIU/L (0.465-4.680) 08/25/22 06:27 Urine Color Light Yellow 08/24/22 18:52 Urine Appearance Clear (Clear) 08/24/22 18:52 Urine pH 5.0 (5.0-8.0) 08/24/22 18:52 Ur Specific [place] 1.008 (1.001-1.035) 08/24/22 18:52 Urine Protein Negative (Negative) 08/24/22 18:52 Urine Glucose (UA) Negative (Negative) 08/24/22 18:52 Urine Ketones 2+ (Negative) H 08/24/22 18:52 Urine Blood Small (Negative) H 08/24/22 18:52 Urine Nitrite Negative (Negative) 08/24/22 18:52 Urine Bilirubin Negative (Negative) 08/24/22 18:52 Urine Urobilinogen <2.0 mg/dL (<2.0) 08/24/22 18:52 Ur Leukocyte Esterase Negative (Negative) 08/24/22 18:52 Urine RBC 1 /hpf (0-5) 08/24/22 18:52 Urine WBC 1 /hpf (0-5) 08/24/22 18:52 Ur Squamous Epith Cells <1 /hpf (0-4) 08/24/22 18:52 Calcium Oxalate Crystal Rare /hpf (None) H 08/24/22 18:52 Hyaline Casts 4 /lpf (0-2) H 08/24/22 18:52 Urine Mucus Rare /hpf (None) H 08/24/22 18:52 Urine HCG, Qual Not Detected (Not Detectd) 08/24/22 18:52 Urine Opiates Screen Not Detected (NotDetected) 08/24/22 18:52 Ur Oxycodone Screen Not Detected (NotDetected) 08/24/22 18:52 Urine Methadone Screen Not Detected (NotDetected) 08/24/22 18:52 Ur Propoxyphene Screen Not Detected (NotDetected) 08/24/22 18:52 Ur Barbiturates Screen Not Detected (NotDetected) 08/24/22 18:52 U Tricyclic Antidepress Not Detected (NotDetected) 08/24/22 18:52 Ur Phencyclidine Scrn Not Detected (NotDetected) 08/24/22 18:52 Ur Amphetamines Screen Not Detected (NotDetected) 08/24/22 18:52 U Methamphetamines Scrn Not Detected (NotDetected) 08/24/22 18:52 U Benzodiazepines Scrn Not Detected (NotDetected) 08/24/22 18:52 Urine Cocaine Screen Not Detected (NotDetected) 08/24/22 18:52 U Marijuana (THC) Screen Detected (NotDetected) H 08/24/22 18:52 Serum Alcohol <10 mg/dL 08/24/22 18:52 Influenza Type A (PCR) Not Detected (Not Detectd) 08/24/22 18:52 Influenza Type B (PCR) Not Detected (Not Detectd) 08/24/22 18:52 RSV (PCR) Not Detected (Not Detectd) 08/24/22 18:52 SARS-CoV-2 (PCR) Not Detected (Not Detectd) 08/24/22 18:52 08/25/22 10:56 IDENTIFYING DATA: Patient is a []57-year-old female, currently and lives with her in a house, she has 4 kids, unemployed. HPI: Patient presented to the hospital [yesterday at the concern of her family. Patient apparently has been having altered mental status acting bizarre for the past few months according to your report. Patient apparently has been "delusional" and having poor insight and flight of ideas. Patient's AST was mildly elevated, white count was also mildly elevated on admission, urine drug screen was positive for THC, blood alcohol level was negative]. Patient was petitioned by her daughter who states that patient was "talking to family members" also talking about witchcraft and to spray painting her house, talking to the television, not sleeping or eating and wandering the ER talking to family members". Petition also states that patient has been "saying she's been in the service and has been delusional and paranoid thinking people are against her". Patient was seen wandering the hallways and agreeable to seek to law writer. Patient appeared to be fairly confused, paranoid and bizarre. Disheveled appearance. Patient was laughing inappropriately during conversation, responding to internal stimuli. She knew the correct location that she was in, her correct name and date of , she knew the correct year however did not know the date and believed that it was "April 05". Patient states that she came to the hospital because she wanted to "save the world from all the chemicals. She was fairly bizarre, illogical thought processes, loose associations, poor reality testing. Very poor insight and judgment. She was rambling at times. She did endorse paranoia and multiple loosely formed delusions. Claims that her sleep and appetite were on and off. Very poor insight as to why her family brought into the hospital. Patient denies any current suicidal or homicidal ideations intent or plan. At this time patient denies any auditory or visual hallucinations. Patient admits to using cannabis daily, smokes about 1 joint a day, nicotine products as well regularly. Patient was a fairly poor historian however did attempt to answer questions. PAST PSYCHIATRIC HISTORY: Patient states that she had no previous psychiatric diagnoses. Claims that she used to be on Zoloft. [Patient denies any previous psychiatric hospitalizations however did state that she believed that she was admitted in [place].] [Patient denies any psychiatric outpatient follow-up.] [Patient denies any history of suicide attempts in the past.] Past Medical History: Hypertension Additional Past Medical History / Comment(s): ovarian cyst, History of Any Multi-Drug Resistant Organisms: None Reported Past Surgical History: Hysterectomy Additional Past Surgical History / Comment(s): left fifth finger, Past Psychological History: Depression Smoking Status: Current every day smoker Past Alcohol Use History: None Reported Past Drug Use History: Marijuana ALLERGIES: as per EMR CHEMICAL DEPENDENCY HISTORY: as per HPI FAMILY PSYCHIATRIC/SUBSTANCE USE HISTORY: Claims that her sister has bipolar disorder SOCIAL HISTORY: Patient was born and raised in [place] near [place] and raised in [place]. She claims that she completed high school, states that she worked several different jobs. Currently unemployed. She lives with her , has 4 kids. They live in a house. MENTAL STATUS EXAM: General Appearance: Patient appears to be thin, older than stated age is alert, bizarre and difficult to redirect. Patient appears to have [poor] hygiene and grooming. Poor dentition Behavior: Patient is seated without any agitated behavior. Laughing inappropriately, bizarre, responding to internal stimuli. Speech: Patient's speech is [fluent and nonpressured.] Hesitant. Mood/Affect: Patient reports their mood is "okay", affect is incongruent and constricted. Suicidality/Homicidality: Patient denies having any homicidal ideation intent or plan. [Denies any suicidal ideations intent or plan] Perceptions: Patient denies any visual hallucinations [and denies any auditory hallucinations] Though content/process: Multiple loosely formed delusions, loose associations, illogical. Paranoia. Memory and concentration: AOX to, does not know today's current date. Poor concentration,. Cannot spell "WORLD" backwards Judgment and insight: [poor] STRENGTHS/WEAKNESSES: strength is that patient is [resilient]. Weakness is that patient [has poor judgment and insight and is impulsive] INTELLECT: [average] IMPRESSIONS: []Psychosis unspecified Cannabis use disorder Nicotine dependence PLAN: -Patient is admitted under [involuntary] status to MHU for stabilization of psychiatric symptoms and safety. Patient has [not] signed [adult voluntary form and] [medication consent] and is placed in patient's chart. [A second cert ification was completed and along with petition will be filed for court.] -Medications : Will start patient on invega 3 mg today and increase to 6 mg qhs starting tomorrow for psychosis. trazodone prn for sleep -Ativan [and Haldol] PRN for agitation/aggression -Patient was informed of the risks, benefits and side effects of the medication -Internal Medicine consult to perform medical evaluation and physical. -NRT - nicotine patch - on board for discharg planning. Encourage patient to participate in groups to work on coping skills. Will await deferral and court date. 08/25/22 11:28
[2022-08-25 16:34] LABS: Chol/HDL Ratio 3.31 Ratio; LDL Cholesterol,Calculated 121.1 mg/dL (0.0-131.0); VLDL Calculation 19.78 mg/dL (5.00-40.00)
[2022-08-25] MEDS ORDERED: PALIPERIDONE 3 MG TAB.ER.24 PO ONE (21:00)
--- NOTE | 2022-08-26 04:11 | P.PN ---
Progress Note - Text Progress Note Date: 08/25/22 patient was delusional , inappropriate for evaluation at this time
[2022-08-26] MEDS: NICOTINE 21MG/24HR PATCH TRANSDERM SCH (09:14)
--- NOTE | 2022-08-26 12:09 | P.PN ---
Subjective Progress Note Date: 08/26/22 Principal diagnosis: Psychosis unspecified Cannabis use disorder Nicotine dependence Subjective/subjective data: The patient reports that she has come here because she needed some salt water She said that this is not available at her home She also reports that she came to see me She also admits that she usually smokes cannabis on a daily basis after she is done with her job When asked about her job patient states that she does all of the above Patient also remains on one-to-one observation Patient remains preoccupied with the psychomotor retardation MENTAL STATUS EXAM: General Appearance: Patient appears to be thin, older than stated age is alert, bizarre and difficult to redirect. Patient appears to have [poor] hygiene and grooming. Poor dentition Behavior: Patient is seated without any agitated behavior. Laughing inappropriately, bizarre, responding to internal stimuli. Speech: Patient's speech is [fluent and nonpressured.] Hesitant. Mood/Affect: Patient reports their mood is "okay", affect is incongruent and constricted. Suicidality/Homicidality: Patient denies having any homicidal ideation intent or plan. [Denies any suicidal ideations intent or plan] Perceptions: Patient denies any visual hallucinations [and denies any auditory hallucinations] Though content/process: Multiple loosely formed delusions, loose associations, illogical. Paranoia. Memory and concentration: AOX to, does not know today's current date. Poor concentration,. Cannot spell "WORLD" backwards Judgment and insight: [poor] Psychosis unspecified Cannabis use disorder Nicotine dependence PLAN: -Patient is admitted under [involuntary] status to MHU for stabilization of psychiatric symptoms and safety. Patient has [not] signed [adult voluntary form and] [medication consent] and is placed in patient's chart. [A second certification was completed and along with petition will be filed for court.] -Medications : invega 6 mg qhs for psychosis. trazodone prn for sleep -Ativan [and Haldol] PRN for agitation/aggression -Patient was informed of the risks, benefits and side effects of the medication -Internal Medicine consult to perform medical evaluation and physical. -NRT - nicotine patch -SW on board for discharg planning. Encourage patient to participate in groups to work on coping skills. Will await deferral and court date. 08/26/22 neftali dobbs MD Objective - Vital Signs Vital signs: Vital Signs Temp 98.1 F 08/26/22 06:57 Pulse 88 08/26/22 06:57 Resp 17 08/26/22 06:57 BP 97/72 08/26/22 09:16 Pulse Ox 98 08/26/22 06:57 FiO2 - Labs CBC & Chem 7: 08/25/22 06:27 08/25/22 06:27 Labs: Abnormal Lab Results - Last 24 Hours (Table) 08/25/22 Range/Units 06:27 Cholesterol 202.00 H (0.00-200.00) mg/dL HDL Cholesterol 61.10 H (40.00-60.00) mg/dL
--- NOTE | 2022-08-26 17:46 | P.MDCNMH ---
History of Present Illness H&P Date: 08/26/22 57-year-old woman who presented for mental health evaluation. Medicine was consulted by psychiatry service for medical evaluation. Patient also complains of this time. Her only medical history includes hypertension, for which she does not take any medications according to her. She thinks she may have a history of fatty liver disease, but is not sure. She denies fevers, chills, nausea, vomiting, chest pain, palpitations. Gen: awake, alert HEENT: normocephalic, atraumatic, good hearing acuity, moist mucous membranes Resp: good air exchange, breathing comfortably with no accessory muscle use CVS: good distal perfusion x 4, GI: soft, NTTP, ND : no SPT, no CVAT, berger catheter not present MSK: no pitting edema, no clubbing Neuro: non-focal, moving all extremities Psych: cooperative, euthymic mood Assessment/plan: Hypertension Hyperlipidemia Psychosis Patient's blood pressures have been elevated in the 130s over 80s, however, today have been 90/60-70, we will hold off on initiating blood pressure medication at this time Her lipid panel is reviewed, elevated total cholesterol of 202, initiate atorvastatin 10 mg at bedtime Remaining care per mental health unit Past Medical History Past Medical History: Hypertension Additional Past Medical History / Comment(s): ovarian cyst, History of Any Multi-Drug Resistant Organisms: None Reported Past Surgical History: Hysterectomy Additional Past Surgical History / Comment(s): left fifth finger, Past Psychological History: Depression Smoking Status: Former smoker Past Alcohol Use History: None Reported Past Drug Use History: Marijuana Medications and Allergies Home Medications Medication Instructions Recorded Confirmed Type Loratadine [Claritin] 10 mg PO DAILY 08/24/22 08/24/22 History Multivitamins, Thera [Multivitamin 1 tab PO DAILY 08/24/22 08/24/22 History (formulary)] Sertraline [Zoloft] 100 mg PO DAILY 08/24/22 08/24/22 History Allergies Allergy/AdvReac Type Severity Reaction Status Date / Time No Known Allergies Allergy Verified 08/24/22 18:35 Physical Exam Osteopathic Statement: *. No significant issues noted on an osteopathic structu ral exam other than those noted in the History and Physical/Consult. Vitals: Vital Signs Temp Pulse Resp BP BP Pulse Ox 08/26/22 09:16 97/72 07/01/23 06:57 98.1 F 88 17 89/60 98 Cranial Nerve Examination - Cranial Nerves Cranial Nerve II- Optic: Intact Cranial Nerve III- Oculomotor: Intact Cranial Nerve IV- Trochlear: Intact Cranial Nerve V- Trigeminal: Intact Cranial Nerve - Abducens: Intact Cranial Nerve VII- Facial: Intact Cranial Nerve VIII- Auditory: Intact Cranial Nerve IX- Glossopharyngeal: Intact Cranial Nerve X- Vagus: Intact Cranial Nerve XI- Accessory: Intact Cranial Nerve XII- Hypoglossal: Intact Results CBC & Chem 7: 08/25/22 06:27 08/25/22 06:27
[2022-08-26] MEDS: PALIPERIDONE 6 MG TAB.ER.24 PO SCH (21:17)
[2022-08-26] MEDS: ATORVASTATIN 10 MG TAB PO SCH (21:17)
[2022-08-27] MEDS: NICOTINE 21MG/24HR PATCH TRANSDERM SCH (10:01)
--- NOTE | 2022-08-27 10:27 | P.PN ---
Subjective Progress Note Date: 08/27/22 Principal diagnosis: Psychosis unspecified Cannabis use disorder Nicotine dependence Subjective/subjective data: Patient remains preoccupied with the psychomotor retardation Patient shows no signs of agitation or aggression Patient responses remain bizarre and unconnected to the questions asked Insight into her problem remains poor MENTAL STATUS EXAM: General Appearance: Patient appears to be thin, older than stated age is alert, bizarre and difficult to redirect. Patient appears to have [poor] hygiene and grooming. Poor dentition Behavior: Patient is seated without any agitated behavior. Laughing inappropriately, bizarre, responding to internal stimuli. Speech: Patient's speech is [fluent and nonpressured.] Hesitant. Mood/Affect: Patient reports their mood is "okay", affect is incongruent and constricted. Suicidality/Homicidality: Patient denies having any homicidal ideation intent or plan. [Denies any suicidal ideations intent or plan] Perceptions: Patient denies any visual hallucinations [and denies any auditory hallucinations] Though content/process: Multiple loosely formed delusions, loose associations, illogical. Paranoia. Memory and concentration: AOX to, does not know today's current date. Poor concentration,. Cannot spell "WORLD" backwards Judgment and insight: [poor] Psychosis unspecified Cannabis use disorder Nicotine dependence PLAN: -Patient is admitted under [involuntary] status to MHU for stabilization of psychiatric symptoms and safety. Patient has [not] signed [adult voluntary form and] [medication consent] and is placed in patient's chart. [A second certification was completed and along with petition will be filed for court.] -Medications : invega 6 mg qhs for psychosis. trazodone prn for sleep -Ativan [and Haldol] PRN for agitation/aggression -Patient was informed of the risks, benefits and side effects of the medication -Internal Medicine consult to perform medical evaluation and physical. -NRT - nicotine patch -SW on board for discharg planning. Encourage patient to participate in groups to work on coping skills. Will await deferral and court date. 08/27/22 neftali dobbs MD Objective - Vital Signs Vital signs: Vital Signs Temp 98.1 F 08/26/22 06:57 Pulse 88 08/26/22 06:57 Resp 17 08/26/22 06:57 BP 97/72 08/26/22 09:16 Pulse Ox 98 08/26/22 06:57 FiO2 Intake & Output 08/26/22 08/27/22 08/27/22 18:59 06:59 18:59 Weight 59.7 kg - Labs CBC & Chem 7: 08/25/22 06:27 08/25/22 06:27
[2022-08-27] MEDS: PALIPERIDONE 6 MG TAB.ER.24 PO SCH (20:41)
[2022-08-27] MEDS: ATORVASTATIN 10 MG TAB PO SCH (20:41)
[2022-08-27] MEDS: LORazepam 1 MG TAB PO PRN (21:41)
[2022-08-28] MEDS: NICOTINE 21MG/24HR PATCH TRANSDERM SCH (09:07)
--- NOTE | 2022-08-28 10:47 | P.PN ---
Progress Note - Text Progress Note Date: 08/28/22 subjective data: Patient was seen taking part in group today and was agreeable to seek a customs entry writer. She appeared to be more directable today during conversational more organized in her thought process. She attempted to answer questions appropriately. She claims that she hasn't taking her medications are for does state that when she gets up she feels a little bit dizzy and difficult walk. At this time she is not endorsing any delusions, appears to have no more paranoia. She has been taking part in groups. She did smile and laugh at times during the interview inappropriately. Claims that she did speak with her and her daughter however did not discuss what they talked about. States that she is sleeping fairly at nighttime however claims that in the morning she feels "drunk". She is denying any depression or anxiety at this time, denying any auditory or visual hallucinations. Denies any changes in her appetite, denying any suicidal or homicidal ideations intent or plan. MENTAL STATUS EXAM: General Appearance: Patient appears to be thin, older than stated age is alert, less bizarre and or directable. Patient appears to have improving hygiene and grooming. Poor dentition Behavior: Patient is seated without any agitated behavior. Directable. Laughing inappropriately, at times, improving. Not responding to internal stimuli. Speech: Patient's speech is fluent and nonpressured. Mood/Affect: Patient reports their mood is "ok", affect is incongruent Suicidality/Homicidality: Patient denies having any homicidal ideation intent or plan. Denies any suicidal ideations intent or plan Perceptions: Patient denies any visual hallucinations and denies any auditory hallucinations Though content/process: Endorsing paranoia, more logical today, no racing thoughts. Not endorsing delusions. Memory and concentration: AOX 3. Improving concentration, however still mildly distracted. Judgment and insight: Improving mildly Assessment: Psychosis unspecified Cannabis use disorder Nicotine dependence PLAN: -Patient is admitted under involuntary status to MHU for stabilization of psychiatric symptoms and safety. Patient has not signed adult voluntary form and medication consent and is placed in patient's chart. A second certification was completed and along with petition will be filed for court. -Medications : decrease invega 3 mg qhs for psychosis due to dizziness and possibly over sedation. trazodone prn for sleep -Ativan and Haldol PRN for agitation/aggression -NRT - nicotine patch -SW on board for discharg planning. Encourage patient to participate in groups to work on coping skills. Will await deferral and court date. likely discharge in 2-3 days back home.
[2022-08-28] MEDS: hydrOXYzine HCL 25 MG TAB PO PRN (14:31)
[2022-08-28] MEDS: ATORVASTATIN 10 MG TAB PO SCH (20:34)
[2022-08-28] MEDS ORDERED: PALIPERIDONE 3 MG TAB.ER.24 PO SCH (21:00)
[2022-08-29] MEDS: NICOTINE 21MG/24HR PATCH TRANSDERM SCH (08:10)
--- NOTE | 2022-08-29 11:18 | P.PN ---
Progress Note - Text Progress Note Date: 08/29/22 subjective data: Patient was seen wandering the hallways today and was agreeable to seek a write r. Staff is reporting the patient is still bizarre and grandiose at times and disorganized at times during groups. Patient did appear to be somewhat more organized today, was fairly concrete and appeared to have limited understanding on her need for hospitalization. States that she did talk with her family however is not disclosing what they spoke about. Continues to have fairly poor insight and judgment. She claims that she is still feeling "off" and states that she is dizzy at times and finding it difficult to walk. She is becoming a little bit more clear and her thought process and organized thinking. Not overtly psychotic and not responding to internal stimuli today. States that she is sleeping fairly at nighttime however claims that in the morning she feels "drunk". She is denying any depression or anxiety at this time, denying any auditory or visual hallucinations. Denies any changes in her appetite, denying any suicidal or homicidal ideations intent or plan. MENTAL STATUS EXAM: General Appearance: Patient appears to be thin, older than stated age is alert, less bizarre and or directable. Patient appears to have improving hygiene and grooming. Poor dentition Behavior: Patient is seated without any agitated behavior. Directable. Not responding to internal stimuli. Speech: Patient's speech is fluent and nonpressured. Mood/Affect: Patient reports their mood is "off", affect is incongruent and constricted. Suicidality/Homicidality: Patient denies having any homicidal ideation intent or plan. Denies any suicidal ideations intent or plan Perceptions: Patient denies any visual hallucinations and denies any auditory hallucinations Though content/process: Endorsing paranoia, more logical today, no racing thoughts. Not endorsing delusions. Memory and concentration: AOX 3. Improving concentration Judgment and insight: poor, Improving mildly Assessment: Psychosis unspecified Cannabis use disorder Nicotine dependence PLAN: -Patient is admitted under involuntary status to MHU for stabilization of psychiatric symptoms and safety. Patient has not signed adult voluntary form and medication consent and is placed in patient's chart. A second certification was completed and along with petition will be filed for court. -Medications : d/c invega and switch to PO prolixin 2 mg bid for psychosis. trazodone prn for sleep -Ativan and Haldol PRN for agitation/aggression -NRT - nicotine patch -SW on board for discharg planning. Encourage patient to participate in groups to work on coping skills. Will await deferral and court date.
[2022-08-29] MEDS: ATORVASTATIN 10 MG TAB PO SCH (20:35)
[2022-08-30] MEDS: NICOTINE 21MG/24HR PATCH TRANSDERM SCH (10:01)
--- NOTE | 2022-08-30 14:39 | P.PN ---
Progress Note - Text Progress Note Date: 08/30/22 subjective data: Patient was seen wandering the hallways today and was fairly persistent and spe aking with account underwriter. Patient appeared to be somewhat bizarre today, was more hostile today with a account underwriter and irritable. She explained that she does not need medications and states that she is not "supposed to be on medications". She appears to have a worse understanding of her need for hospitalization and also medications and claims that she wants to sign to leave AGAINST MEDICAL ADVICE. She was more argumentative today with account underwriter, was not responding to internal stimuli. She is denying any depression or anxiety at this time, denying any auditory or visual hallucinations. Denies any changes in her appetite, denying any suicidal or homicidal ideations intent or plan. MENTAL STATUS EXAM: General Appearance: Patient appears to be thin, older than stated age is alert, bizarre and difficult to redirect. More hostile today. Patient appears to have improving hygiene and grooming. Poor dentition Behavior: Patient is seated without any agitated behavior. Difficult to redirect Not responding to internal stimuli. Speech: Patient's speech is fluent and nonpressured. Her demanding Mood/Affect: Patient reports their mood is "ok", affect is incongruent and constricted. Suicidality/Homicidality: Patient denies having any homicidal ideation intent or plan. Denies any suicidal ideations intent or plan Perceptions: Patient denies any visual hallucinations and denies any auditory hallucinations Though content/process: Endorsing paranoia, more demanding. Poor insight. Not endorsing delusions. Memory and concentration: AOX 3. Improving concentration Judgment and insight: poor Assessment: Psychosis unspecified Cannabis use disorder Nicotine dependence PLAN: -Patient is admitted under involuntary status to [facility] for stabilization of psychiatric symptoms and safety. Patient has not signed adult voluntary form and medication consent and is placed in patient's chart. -Medications : increase PO prolixin 5 mg bid for psychosis. trazodone 50 mg scheduled for sleep -Ativan and Haldol PRN for agitation/aggression -NRT - nicotine patch -SW on board for discharg planning. Encourage patient to participate in groups to work on coping skills. patient signed deferral with her civil attorney however today will file demand for hearing as patient is threatening to leave AMA and refusing medication changes.
[2022-08-30] MEDS: hydrOXYzine HCL 25 MG TAB PO PRN (17:31)
[2022-08-30] MEDS: ATORVASTATIN 10 MG TAB PO SCH (21:49)
[2022-08-30] MEDS: traZODone HCL 50 MG TAB PO SCH (21:49)
[2022-08-31] MEDS: NICOTINE 21MG/24HR PATCH TRANSDERM SCH (08:37)
--- NOTE | 2022-08-31 11:52 | P.PN ---
Progress Note - Text Progress Note Date: 08/31/22 subjective data: Patient was seen wandering the hallways today conversing with another patient d sulaiman trujillo, she was agreeable to speak to record today in her room. She continues to be bizarre, poor insight and judgment. She claims that she only took her sleep medication last night and states that "I didn't need the other one" referring to the Prolixin. She states that "I know what my body needs". She states that she is very thankful for what television writer has done. She claims that she speak that the "animals at times when asked about hallucinations". Denies any voices however. Patient appeared to be somewhat bizarre today, she was not hostile today with television writer. was not responding to internal stimuli. She is denying any depression or anxiety at this time, denying any auditory or visual hallucinations. Denies any changes in her appetite, denying any suicidal or homicidal ideations intent or plan. MENTAL STATUS EXAM: General Appearance: Patient appears to be thin, older than stated age is alert, bizarre and difficult to redirect. Patient appears to have improving hygiene and grooming. Poor dentition Behavior: Patient is seated without any agitated behavior. Bizarre yet Not responding to internal stimuli. Speech: Patient's speech is fluent and nonpressured. Not demanding today. Mood/Affect: Patient reports their mood is "ok", affect is incongruent and constricted. Suicidality/Homicidality: Patient denies having any homicidal ideation intent or plan. Denies any suicidal ideations intent or plan Perceptions: Patient denies any visual hallucinations and denies any auditory hallucinations Though content/process: Endorsing paranoia, more demanding. Poor insight. Not endorsing delusions. bizzare Memory and concentration: AOX 3. Improving concentration Judgment and insight: poor Assessment: Psychosis unspecified Cannabis use disorder Nicotine dependence PLAN: -Patient is admitted under involuntary status to [facility] for stabilization of psychiatric symptoms and safety. Patient has not signed adult voluntary form and medication consent and is placed in patient's chart. -Medications : Continue PO prolixin 5 mg bid for psychosis. trazodone 50 mg scheduled for sleep, patient has been selectively taking certain medications -Ativan and Haldol PRN for agitation/aggression -NRT - nicotine patch -SW on board for discharg planning. Encourage patient to participate in groups to work on coping skills. patient signed deferral with her [place] attorney however we filed demand for hearing as patient is threatening to leave AMA and refusing medication changes. awaiting hearing date.
[2022-08-31] MEDS: traZODone HCL 50 MG TAB PO SCH (21:29)
[2022-08-31] MEDS: ATORVASTATIN 10 MG TAB PO SCH (21:29)
[2022-08-31] MEDS: IBUPROFEN 600 MG TAB PO PRN (23:06)
[2022-08-31] MEDS: haloperidoL 5 MG TAB PO PRN (23:06)
[2022-09-01] MEDS: NICOTINE 21MG/24HR PATCH TRANSDERM SCH (08:28)
--- NOTE | 2022-09-01 11:20 | P.PN ---
Progress Note - Text Progress Note Date: 09/01/22 subjective data: Patient was seen taking part in group this morning and she was agreeable to spe ak to tech writer today in her room. She continues to be bizarre, poor insight and judgment and apparently last night was attempting to elope from the unit by following security and was agitated afterwards, required haldol prn for agitation. She claims that she did not sleep well last night. She continues to have very poor insight into her need for psychiatric treatment. She continues to state that "I only take medications that I'm supposed to". We spoke about the court process and patient became upset with tech writer and hostile when she learned that the court was scheduled for next Sunday. Patient demanded several times to be discharged. Continues to have poor impulse control. claims that she needs to go home so she can pack her brussel sprouts. was not responding to internal stimuli. She is denying any depression or anxiety at this time, denying any auditory or visual hallucinations. Denies any changes in her appetite, denying any suicidal or homicidal ideations intent or plan. MENTAL STATUS EXAM: General Appearance: Patient appears to be thin, older than stated age is alert, bizarre and difficult to redirect. Patient appears to have improving hygiene and grooming. Poor dentition Behavior: Patient is seated without any agitated behavior. Bizarre yet Not responding to internal stimuli. hostile at times. Speech: Patient's speech is fluent and nonpressured. demanding today. Mood/Affect: Patient reports their mood is "fine", affect is incongruent and constricted. Suicidality/Homicidality: Patient denies having any homicidal ideation intent or plan. Denies any suicidal ideations intent or plan Perceptions: Patient denies any visual hallucinations and denies any auditory hallucinations Though content/process: Endorsing paranoia, more demanding. Poor insight. Not endorsing delusions. bizzare Memory and concentration: AOX 3. Improving concentration Judgment and insight: poor Assessment: Psychosis unspecified Cannabis use disorder Nicotine dependence PLAN: -Patient is admitted under involuntary status to [facility] for stabilization of psychiatric symptoms and safety. Patient has not signed adult voluntary form and medication consent and is placed in patient's chart. -Medications : Continue PO prolixin 5 mg bid for psychosis, this can be increased over the weekend if needed/tolerated. increase trazodone 100 mg scheduled for sleep. start depakote 500 mg bid for mood stabilization. -Ativan and Haldol PRN for agitation/aggression -NRT - nicotine patch -SW on board for discharg planning. Encourage patient to participate in groups to work on coping skills. patient signed deferral with her assistant district attorney however we filed demand for hearing as patient is threatening to leave AMA and refusing medication changes. court hearing date scheudled for sunseptember 06. will ask family to come in and see patient to assess for baseline over the weekend.
[2022-09-01] MEDS: DIVALPROEX ER 500 MG TAB.ER.24H PO SCH ×2 (12:14→20:03)
[2022-09-01] MEDS: ATORVASTATIN 10 MG TAB PO SCH (20:03)
[2022-09-01] MEDS: traZODone HCL 100 MG TAB PO SCH (20:03)
[2022-09-01] MEDS: LORazepam 1 MG TAB PO PRN (22:31)
[2022-09-01] MEDS: haloperidoL 5 MG TAB PO PRN (22:31)
[2022-09-02] MEDS: NICOTINE 21MG/24HR PATCH TRANSDERM SCH (08:45)
[2022-09-02] MEDS: DIVALPROEX ER 500 MG TAB.ER.24H PO SCH ×2 (08:46→20:29)
--- NOTE | 2022-09-02 12:54 | P.PN ---
Progress Note - Text Progress Note Date: 09/02/22 Interval history: per nursing, patient called her yesterday and was angry and accusing him of having an affair. At this time patient denies any suicidal or homicidal ideations intent or plan. Denies any Auditory or visual hallucinations. Patient denies any side effects from the medications and has been compliant with meds. Mental status exam: General Appearance: [Patient appears to be stated age is alert, directable, and cooperative.] Behavior: [No agitated behavior. Patient is calm and directable] Speech: Patient's speech is fluent and nonpressured. Mood/Affect: Mood is improving mildly, affect is blunted Suicidality/Homicidality: Patient denies having any suicidal or homicidal ideation intent or plan. Perceptions: Patient denies any auditory or visual hallucinations. she does appear to be responding to internal stimuli Though content/process: [There is no evidence of any delusional thought content and thought process is linear and goal-directed.] Memory and concentration: AOX3, grossly intact for the purposes of this session Judgment and insight: poor Assessment/Plan: Continue with current diagnosis. Patient continues to meet criteria for inpatient psychiatric admission for symptom stabilization and safety.[Patient will be maintained on current psychotropic medication regimen.] Monitor for medication compliance and for any psychotropic medication side effects. Will continue to monitor ongoing response to treatment. Encouraged pa rticipation in milieu.
[2022-09-02] MEDS: ATORVASTATIN 10 MG TAB PO SCH (20:29)
[2022-09-02] MEDS: traZODone HCL 100 MG TAB PO SCH (20:29)
[2022-09-02] MEDS: LORazepam 1 MG TAB PO PRN (21:28)
[2022-09-02] MEDS: haloperidoL 5 MG TAB PO PRN (21:28)
[2022-09-03] MEDS: DIVALPROEX ER 500 MG TAB.ER.24H PO SCH ×2 (08:05→20:30)
[2022-09-03] MEDS: NICOTINE 21MG/24HR PATCH TRANSDERM SCH (08:05)
[2022-09-03] MEDS: ACETAMINOPHEN TAB 325 MG TAB PO PRN (08:06)
--- NOTE | 2022-09-03 12:05 | P.PN ---
Progress Note - Text Interval history: At this time patient denies any suicidal or homicidal ideations intent or plan. Denies any Auditory or visual hallucinations. Patient denies any side effects from the medications and has been compliant with meds. Mental status exam: General Appearance: [Patient appears to be stated age is alert, directable. Avoidant Behavior: Superficially cooperative, avoided Speech: Hypoverbal Mood/Affect: constricted Suicidality/Homicidality: Patient denies having any suicidal or homicidal ideation intent or plan. Perceptions: no RIS Though content/process: [There is no evidence of any delusional thought content and thought process is linear and goal-directed.] Memory and concentration: AOX3, grossly intact for the purposes of this session Judgment and insight: Poor Assessment/Plan: Continue with current diagnosis. Patient continues to meet criteria for inpatient psychiatric admission for symptom stabilization and safety.[Patient will be maintained on current psychotropic medication regimen.] Monitor for medication compliance and for any psychotropic medication side effects. Will continue to monitor ongoing response to treatment. Encouraged participation in milieu.
[2022-09-03] MEDS: ATORVASTATIN 10 MG TAB PO SCH (20:30)
[2022-09-03] MEDS: traZODone HCL 100 MG TAB PO SCH (20:30)
[2022-09-03] MEDS: haloperidoL 5 MG TAB PO PRN (21:06)
[2022-09-03] MEDS: LORazepam 1 MG TAB PO PRN (21:06)
[2022-09-04] MEDS: DIVALPROEX ER 500 MG TAB.ER.24H PO SCH ×2 (09:01→20:08)
[2022-09-04] MEDS: NICOTINE 21MG/24HR PATCH TRANSDERM SCH (09:02)
--- NOTE | 2022-09-04 10:27 | P.PN ---
Progress Note - Text Progress Note Date: 09/04/22 subjective data: Patient was seen taking part in group this morning and she was agreeable to spe ak to teletypewriter operator today in her room. Patient appears to be more directable during conversation, less bizarre during the interaction. She answered questions fairly concretely and appropriate. She states that she was visited by her over the weekend, they had a good interaction she states. She claims that she unfairly last night about 6-7 hours. She continues to have poor insight into her need for psychiatric treatment however this is improving. We spoke about the court process and patient became upset with teletypewriter operator and hostile when she learned that the court was scheduled for this Sunday. Improvement in impulse control. was not responding to internal stimuli. She is denying any depression or anxiety at this time, denying any auditory or visual hallucinations. Denies any changes in her appetite, denying any suicidal or homicidal ideations intent or plan. MENTAL STATUS EXAM: General Appearance: Patient appears to be thin, older than stated age is alert, less bizarre. Patient appears to have improving hygiene and grooming. Poor dentition Behavior: Patient is seated without any agitated behavior. Bizarre yet Not responding to internal stimuli. Speech: Patient's speech is fluent and nonpressured. coopertaive today Mood/Affect: Patient reports their mood is "ok", affect is incongruent and constricted. Suicidality/Homicidality: Patient denies having any homicidal ideation intent or plan. Denies any suicidal ideations intent or plan Perceptions: Patient denies any visual hallucinations and denies any auditory hallucinations Though content/process: not endorsing paranoia. Poor insight, improving mildly. Not endorsing delusions Memory and concentration: AOX 3. Improving concentration Judgment and insight: poor, improving mildly Assessment: Psychosis unspecified Cannabis use disorder Nicotine dependence PLAN: -Patient is admitted under involuntary status to [facility] for stabilization of psychiatric symptoms and safety. Patient has not signed adult voluntary form and medication consent and is placed in patient's chart. -Medications : Continue PO prolixin 5 mg bid for psychosis, trazodone 100 mg scheduled for sleep. depakote 500 mg bid for mood stabilization. -Ativan and Haldol PRN for agitation/aggression -NRT - nicotine patch -SW on board for discharg planning. Encourage patient to participate in groups to work on coping skills. demand for court hearing date scheudled for sunseptember 06. possibly discharge after court on sun vs back home if patient continues to improve.
[2022-09-04 12:55] VITALS: BMI 20.8
[2022-09-04] MEDS: ATORVASTATIN 10 MG TAB PO SCH (20:08)
[2022-09-04] MEDS: traZODone HCL 100 MG TAB PO SCH (20:08)
[2022-09-04] MEDS: LORazepam 1 MG TAB PO PRN (21:27)
[2022-09-04] MEDS: IBUPROFEN 600 MG TAB PO PRN (21:27)
[2022-09-05] MEDS: NICOTINE 21MG/24HR PATCH TRANSDERM SCH (09:16)
[2022-09-05] MEDS: DIVALPROEX ER 500 MG TAB.ER.24H PO SCH ×2 (09:16→20:41)
--- NOTE | 2022-09-05 10:33 | P.PN ---
Progress Note - Text Progress Note Date: 09/05/22 subjective data: Patient was seen wandering the hallways this morning and she was agreeable to s peak to typewriters functional tester today. Patient appears to be more appropriate during interaction, however is fairly slow in her responses. She denies any overt complaints, states that she is sleeping better. She denied any stiffness or any EPS-type overreactions however patient did have a slowed gait. She claims that she is tolerating the medications fairly well, denies any paranoia or delusions at this time. States that her appetite is fair, has been going to some groups. She was more engaging today with typewriters functional tester, not argumentative. She asked questions about her court tomorrow and possibly discharge. Improvement in impulse control. was not responding to internal stimuli. She is denying any depression or anxiety at this time, denying any auditory or visual hallucinations. Denies any changes in her appetite, denying any suicidal or homicidal ideations intent or plan. MENTAL STATUS EXAM: General Appearance: Patient appears to be thin, older than stated age is alert, not bizarre. Patient appears to have improving hygiene and grooming. Poor dentition Behavior: Patient is seated without any agitated behavior. not Bizarre, Not responding to internal stimuli. slowed movements. Speech: Patient's speech is fluent and nonpressured. coopertaive today Mood/Affect: Patient reports their mood is "alright", affect is congruent and constricted. Suicidality/Homicidality: Patient denies having any homicidal ideation intent or plan. Denies any suicidal ideations intent or plan Perceptions: Patient denies any visual hallucinations and denies any auditory hallucinations Though content/process: not endorsing paranoia. improving insight, improving mildly. Not endorsing delusions. concrete Memory and concentration: AOX 3. Improving concentration Judgment and insight: poor, improving mildly Assessment: Psychosis unspecified Cannabis use disorder Nicotine dependence PLAN: -Patient is admitted under involuntary status to [facility] for stabilization of psychiatric symptoms and safety. Patient has not signed adult voluntary form and medication consent and is placed in patient's chart. -Medications : decrease PO prolixin 3 mg bid for psychosis due to signs of possible oversedation/overmedication?, trazodone 100 mg scheduled for sleep. depakote 500 mg bid for mood stabilization. -Ativan and Haldol PRN for agitation/aggression -NRT - nicotine patch -SW on board for discharg planning. Encourage patient to participate in groups to work on coping skills. demand for court hearing date scheudled for sunseptember 06. possibly discharge after court on sun if patient continues to improve.
[2022-09-05] MEDS: ATORVASTATIN 10 MG TAB PO SCH (20:41)
[2022-09-05] MEDS: traZODone HCL 100 MG TAB PO SCH (20:41)
[2022-09-05] MEDS: LORazepam 1 MG TAB PO PRN (22:32)
[2022-09-05] MEDS: haloperidoL 5 MG TAB PO PRN (22:32)
[2022-09-06] MEDS: ACETAMINOPHEN TAB 325 MG TAB PO PRN (07:17)
[2022-09-06] MEDS: NICOTINE 21MG/24HR PATCH TRANSDERM SCH (09:14)
[2022-09-06] MEDS: DIVALPROEX ER 500 MG TAB.ER.24H PO SCH ×2 (09:15→21:14)
--- NOTE | 2022-09-06 19:30 | P.PN ---
Progress Note - Text Progress Note Date: 09/06/22 subjective data: Patient was seen wandering the hallways this morning and she was agreeable to s peak to display card writer today. Patient was seen after her court hearing. we reflected back on the hearing and she was agreeable to continue on with treatment. she appears to be more appropriate during interaction. She claims that she was finding it difficult to sleep and states that she gets restlessness at night time. she claims that voltaren gel usually helps with it and allows her to sleep. States that her appetite is fair, has been going to some groups. Improvement in impulse control. was not responding to internal stimuli. She is denying any depression or anxiety at this time, denying any auditory or visual hallucinations. Denies any changes in her appetite, denying any suicidal or homicidal ideations intent or plan. patient took haldol and ativan PO last night for unclear reasons. MENTAL STATUS EXAM: General Appearance: Patient appears to be thin, older than stated age is alert, not bizarre. Patient appears to have improving hygiene and grooming. Poor dentition Behavior: Patient is seated without any agitated behavior. not Bizarre, Not responding to internal stimuli. Speech: Patient's speech is fluent and nonpressured. coopertaive today Mood/Affect: Patient reports their mood is "alright", affect is congruent and improving affect Suicidality/Homicidality: Patient denies having any homicidal ideation intent or plan. Denies any suicidal ideations intent or plan Perceptions: Patient denies any visual hallucinations and denies any auditory hallucinations Though content/process: not endorsing paranoia. improving insight, improving mildly. Not endorsing delusions. concrete, improving mildly Memory and concentration: AOX 3. Improving concentration Judgment and insight: improving mildly Assessment: Psychosis unspecified Cannabis use disorder Nicotine dependence PLAN: -Patient is admitted under involuntary status to [facility] for stabilization of psychiatric symptoms and safety. Patient has not signed adult voluntary form and medication consent and is placed in patient's chart. -Medications : continue with PO prolixin 3 mg bid for psychosis, trazodone 100 mg scheduled for sleep. added requip 0.25 mg qhs for restless leg sx. added melatonin 6 mg qhs for sleep. depakote 500 mg bid for mood stabilization. voltaren bid for arthritic pain. -Ativan and Haldol PRN for agitation/aggression -NRT - nicotine patch -SW on board for discharg planning. Encourage patient to participate in groups to work on coping skills. demand for court hearing date took place on 09/06 and resulted in a mental health order. likely discharge tomorrow if patient improves and is able to sleep without prns.
[2022-09-06] MEDS: traZODone HCL 100 MG TAB PO SCH (20:47)
[2022-09-06] MEDS: ATORVASTATIN 10 MG TAB PO SCH (20:47)
[2022-09-06] MEDS: LORazepam 1 MG TAB PO PRN (20:48)
[2022-09-06] MEDS: DICLOFENAC SODIUM GEL 100 GM TUBE TOPICAL SCH (20:49)
[2022-09-06] MEDS ORDERED: MELATONIN 3 MG TABLET PO SCH (21:00)
[2022-09-07 07:13] VITALS: BP 102/59; PULSE 54; RESP 14; TEMP 97
[2022-09-07] MEDS: NICOTINE 21MG/24HR PATCH TRANSDERM SCH (09:07)
[2022-09-07] MEDS: DIVALPROEX ER 500 MG TAB.ER.24H PO SCH (09:08)
[2022-09-07] MEDS: DICLOFENAC SODIUM GEL 100 GM TUBE TOPICAL SCH (09:08)
--- NOTE | 2022-09-07 10:30 | P.DS ---
Providers Date of admission: 08/24/22 22:34 Expected date of discharge: 09/07/22 Attending physician: Medardo Delgado MD Consults: 08/24/22 23:58 Consult Physician Routine Consulting Provider: Marga Physician Consult Reason/Comments: h and p Do you want consulting provider notified?: Yes, Notify in am Primary care physician: Yohana Masterson, PAC - Discharge Diagnosis(es) (1) Unspecified psychosis Current Visit: Yes Status: Acute Priority: High (2) Cannabis use disorder Current Visit: Yes Status: Acute Priority: Medium (3) Nicotine dependence Current Visit: Yes Status: Acute Priority: Low Hospital Course: Admission HPI: Admission note was completed by investigative writer "Patient is a 57-year-old female, currently and lives with her in a house, she has 4 kids, unemployed. Patient presented to the hospital yesterday at the concern of her family. Patient apparently has been having altered mental status acting bizarre for the past few months according to your report. Patient apparently has been "delusional" and having poor insight and flight of ideas. Patient's AST was mildly elevated, white count was also mildly elevated on admission, urine drug screen was positive for THC, blood alcohol level was negative. Patient was petitioned by her daughter who states that patient was "talking to family members" also talking about witchcraft and to spray painting her house, talking to the television, not sleeping or eating and wandering the ER talking to family members". Petition also states that patient has been "saying she's been in the service and has been delusional and paranoid thinking people are against her". Patient was seen wandering the hallways and agreeable to seek to investigative writer. Patient appeared to be fairly confused, paranoid and bizarre. Disheveled appearance. Patient was laughing inappropriately during conversation, r esponding to internal stimuli. She knew the correct location that she was in, her correct name and date of , she knew the correct year however did not know the date and believed that it was "April 05". Patient states that she came to the hospital because she wanted to "save the world from all the chemicals. She was fairly bizarre, illogical thought processes, loose associations, poor reality testing. Very poor insight and judgment. She was rambling at times. She did endorse paranoia and multiple loosely formed delusions. Claims that her sleep and appetite were on and off. Very poor insight as to why her family brought into the hospital. Patient denies any current suicidal or homicidal ideations intent or plan. At this time patient denies any auditory or visual hallucinations. Patient admits to using cannabis daily, smokes about 1 joint a day, nicotine products as well regularly." Hospital course: Upon admission to the unit patient was admitted involuntarily on a petition and certificate and a second certificate was completed and faxed with the courts. Patient ended up signing a deferral with the patent prosecution attorney and agreeing to treatment. However patient attempted to sign self out and refused meds after signing deferral therefore a demand for hearing was filed and took place resulting in a court order for mental health treatment. Patient got along well with other patients on the unit and followed unit protocol. With time and treatment she eventually became compliant with the medications and denied any side effects throughout hospital course. Patient was started on Prolixin by mouth and increased to a dose of 3 mg bid for psychosis, trazodone 100 mg by mouth for sleep/mood, Requip was added 0.25 mg daily at bedtime for restless leg symptoms, melatonin 6 mg daily at bedtime for sleep, Depakote 500 mg twice a day for mood stabilization.. Patient spoke of her stressors and engaged in therapy both group and individual. Patient was also seen by medical team for history and physical exam. Throughout the course of the hospitalization patient gradually improved with regards to mood, anxiety, psychosis/bizarre behavior, sleep and returned back to their baseline level of functioning. On the day of discharge patient denied any suicidal or homicidal ideations intent or plan denied any auditory or visual hallucinations. Patient endorsed wanting to live for her health and her future. The patient denied any access to guns or weapons. Patient denied any paranoia and did not endorse any delusions. Patient does have a significant history of substance abuse and was counseled on abstaining from all substances including alcohol and marijuana. Patient elected to do outpatient substance use treatment program through [facility]. Patient was also counseled on the medications and need for regular compliance and was encouraged to follow-up with their outpatient appointment for mental health and also for primary care. Prior to discharge a family meeting will be arranged by delinquency prevention social worker to answer any questions and ensure safety upon discharge. Mental status exam: General Appearance: Patient appears to be thin, stated age is alert, pleasant, and cooperative. Patient is in no acute distress and has improved hygiene and grooming Behavior: Patient is calmly seated without any agitated behavior. Speech: Patient's speech is fluent and nonpressured. Mood/Affect: Patient reports their mood is "good", affect is congruent Suicidality/Homicidality: Patient denies having any suicidal or homicidal ideation intent or plan. Perceptions: Patient denies any auditory or visual hallucinations. Though content/process: There is no evidence of any delusional thought content and thought process is linear and goal-directed. more future oriented Memory and concentration: AOX3, grossly intact for the purposes of this session. Can spell "WORLD" backwards correctly. Judgment and insight: improved with guarded prognosis Impression: Psychosis unspecified Cannabis use disorder Nicotine dependence Plan: -Continue with discharge today as patient has improved and stabilized psychiatrically and is not currently an imminent threat to herself and/or others. Patient will remain at chronically elevated risk for harm to self and/or others due to her impulsivity and substance abuse. -Continue medications: Celexa and by mouth 3 mg twice a day for psychosis, trazodone 100 mg daily at bedtime for sleep/mood, Requip 0.25 mg daily at bedtime for restless leg symptoms, melatonin 6 mg daily at bedtime for sleep, Depakote 500 mg twice a day for mood stabilization. -Patient was counseled on the need for medication compliance and appropriate follow-up at mental health and also primary care for medical issues. Patient verbalized understanding and agreed. -Social work to arrange for and conduct family meeting to ensure safety upon discharge and answer any questions/concerns. Social work also to arrange for patients follow up appointments for psychiatric care along with follow up with primary care provider. -Patient counseled on abstaining from recreational drugs and marijuana and alcohol. Was informed/educated on the adverse effects on their physical and mental health. Patient verbally agreed and understood. -Patient was instructed to return to the hospital or seek immediate medical care if their psychiatric or medical symptoms do worsen or reoccur. Allergies Allergy/AdvReac Type Severity Reaction Status Date / Time No Known Allergies Allergy Verified 08/24/22 18:35 Laboratory Results WBC 7.2 k/uL (3.8-10.6) 08/25/22 06: RBC 4.43 m/uL (3.80-5.40) 08/25/22 06:27 Hgb 14.5 gm/dL (11.4-16.0) 08/25/22 06:27 Hct 43.9 % (34.0-46.0) 08/25/22 06:27 MCV 99.0 fL (80.0-100.0) 08/25/22 06:27 MCH 32.6 pg (25.0-35.0) 08/25/22 06:27 MCHC 33.0 g/dL (31.0-37.0) 08/25/22 06:27 RDW 14.2 % (11.5-15.5) 08/25/22 06:27 Plt Count 394 k/uL (150-450) 08/25/22 06:27 MPV 8.1 08/25/22 06: Neutrophils % 58 % 08/25/22 06:27 Lymphocytes % 29 % 08/25/22 06:27 Monocytes % 8 % 08/25/22 06:27 Eosinophils % 1 % 08/25/22 06:27 Basophils % 1 % 08/25/22 06:27 Neutrophils # 4.2 k/uL (1.3-7.7) 08/25/22 06:27 Lymphocytes # 2.1 k/uL (1.0-4.8) 08/25/22 06:27 Monocytes # 0.6 k/uL (0-1.0) 08/25/22 06:27 Eosinophils # 0.1 k/uL (0-0.7) 08/25/22 06:27 Basophils # 0.1 k/uL (0-0.2) 08/25/22 06:27 PT 9.8 sec (9.0-12.0) 08/24/22 18:52 INR 0.9 (<1.2) 08/24/22 18:52 APTT 23.8 sec (22.0-30.0) 08/24/22 18:52 VBG pH 7.31 (7.31-7.41) 08/24/22 18:52 VBG pCO2 44 mmHg (37-51) 08/24/22 18:52 VBG HCO3 22 mmol/L (24-28) L 08/24/22 18:52 Sodium 140 mmol/L (137-145) 08/25/22 06:27 Potassium 4.0 mmol/L (3.5-5.1) 08/25/22 06:27 Chloride 108 mmol/L (98-107) H 08/25/22 06:27 Carbon Dioxide 21 mmol/L (22-30) L 08/25/22 06:27 Anion Gap 11 mmol/L 08/25/22 06:27 BUN 10 mg/dL (7-17) 08/25/22 06:27 Creatinine 0.59 mg/dL (0.52-1.04) 08/25/22 06:27 Est GFR (CKD-EPI)AfAm >90 (>60 ml/min/1.73 sqM) 08/25/22 06:27 Est GFR (CKD-EPI)NonAf >90 (>60 ml/min/1.73 sqM) 08/25/22 06:27 Glucose 80 mg/dL (74-99) 08/25/22 06:[address] Glu mg/dL 100 mg/dL 08/25/22 06:27 Hemoglobin A1c 5.1 % (<=6.0) 08/25/22 06:27 Calcium 9.6 mg/dL (8.4-10.2) 08/25/22 06:27 Total Bilirubin 1.0 mg/dL (0.2-1.3) 08/25/22 06:27 AST 37 U/L (14-36) H 08/25/22 06:27 ALT 26 U/L (4-34) 08/25/22 06:27 Alkaline Phosphatase 47 U/L (38-126) 08/25/22 06:27 Ammonia <9 umol/L (<30) 08/24/22 18:52 Total Protein 7.0 g/dL (6.3-8.2) 08/25/22 06:27 Albumin 4.3 g/dL (3.5-5.0) 08/25/22 06:27 Triglycerides 98.90 mg/dL (0.00-149.00) 08/25/22 06:27 Cholesterol 202.00 mg/dL (0.00-200.00) H 08/25/22 06:27 LDL Cholesterol, Calc 121.1 mg/dL (0.0-131.0) 08/25/22 06:27 VLDL Cholesterol, Calc 19.78 mg/dL (5.00-40.00) 08/25/22 06: HDL Cholesterol 61.10 mg/dL (40.00-60.00) H 08/25/22 06:27 Cholesterol/HDL Ratio 3.31 Ratio 08/25/22 06: TSH 1.680 mIU/L (0.465-4.680) 08/25/22 06:27 Urine Color Light Yellow 08/24/22 18:52 Urine Appearance Clear (Clear) 08/24/22 18:52 Urine pH 5.0 (5.0-8.0) 08/24/22 18:52 Ur Specific [place] 1.008 (1.001-1.035) 08/24/22 18:52 Urine Protein Negative (Negative) 08/24/22 18:52 Urine Glucose (UA) Negative (Negative) 08/24/22 18:52 Urine Ketones 2+ (Negative) H 08/24/22 18:52 Urine Blood Small (Negative) H 08/24/22 18:52 Urine Nitrite Negative (Negative) 08/24/22 18:52 Urine Bilirubin Negative (Negative) 08/24/22 18:52 Urine Urobilinogen <2.0 mg/dL (<2.0) 08/24/22 18:52 Ur Leukocyte Esterase Negative (Negative) 08/24/22 18:52 Urine RBC 1 /hpf (0-5) 08/24/22 18:52 Urine WBC 1 /hpf (0-5) 08/24/22 18:52 Ur Squamous Epith Cells <1 /hpf (0-4) 08/24/22 18:52 Calcium Oxalate Crystal Rare /hpf (None) H 08/24/22 18:52 Hyaline Casts 4 /lpf (0-2) H 08/24/22 18:52 Urine Mucus Rare /hpf (None) H 08/24/22 18:52 Urine HCG, Qual Not Detected (Not Detectd) 08/24/22 18:52 Urine Opiates Screen Not Detected (NotDetected) 08/24/22 18:52 Ur Oxycodone Screen Not Detected (NotDetected) 08/24/22 18:52 Urine Methadone Screen Not Detected (NotDetected) 08/24/22 18:52 Ur Propoxyphene Screen Not Detected (NotDetected) 08/24/22 18:52 Ur Barbiturates Screen Not Detected (NotDetected) 08/24/22 18:52 U Tricyclic Antidepress Not Detected (NotDetected) 08/24/22 18:52 Ur Phencyclidine Scrn Not Detected (NotDetected) 08/24/22 18:52 Ur Amphetamines Screen Not Detected (NotDetected) 08/24/22 18:52 U Methamphetamines Scrn Not Detected (NotDetected) 08/24/22 18:52 U Benzodiazepines Scrn Not Detected (NotDetected) 08/24/22 18:52 Urine Cocaine Screen Not Detected (NotDetected) 08/24/22 18:52 U Marijuana (THC) Screen Detected (NotDetected) H 08/24/22 18:52 Serum Alcohol <10 mg/dL 08/24/22 18:52 Influenza Type A (PCR) Not Detected (Not Detectd) 08/24/22 18:52 Influenza Type B (PCR) Not Detected (Not Detectd) 08/24/22 18:52 RSV (PCR) Not Detected (Not Detectd) 08/24/22 18:52 SARS-CoV-2 (PCR) Not Detected (Not Detectd) 08/24/22 18:52 Vital Signs Temp 97 F L 09/07/22 06:47 Pulse 54 L 09/07/22 06:47 Resp 14 09/07/22 06:47 BP 102/59 09/07/22 06:47 Pulse Ox 98 09/06/22 06:25 FiO2 Patient Condition at Discharge: Stable Plan - Discharge Summary Discharge Rx Participant: Yes New Discharge Prescriptions: New Divalproex ER [Depakote ER] 500 mg PO BID 30 Days #60 tab Nicotine 21Mg/24Hr Patch [Habitrol] 1 patch TRANSDERM DAILY 14 Days #14 patch Melatonin 6 mg PO HS 30 Days #60 tab fluPHENAZine [Prolixin] 3 mg PO BID 30 Days #180 tab rOPINIRole HCL [Requip] 0.25 mg PO HS 30 Days #30 tab traZODone HCL [Desyrel] 100 mg PO HS 30 Days #30 tab Atorvastatin [Lipitor] 10 mg PO HS 30 Days #30 tab Ibuprofen [Motrin] 600 mg PO Q6HR PRN tab PRN Reason: Moderate Pain (Scale 4 To 6) Diclofenac Sodium Gel [Voltaren Gel] 4 gm TOPICAL BID gm Continue Loratadine [Claritin] 10 mg PO DAILY Multivitamins, Thera [Multivitamin (formulary)] 1 tab PO DAILY Discontinued Sertraline [Zoloft] 100 mg PO DAILY Discharge Medication List Loratadine [Claritin] 10 mg PO DAILY 08/24/22 [History] Multivitamins, Thera [Multivitamin (formulary)] 1 tab PO DAILY 08/24/22 [History] Atorvastatin [Lipitor] 10 mg PO HS 30 Days #30 tab 09/07/22 [Rx] Diclofenac Sodium Gel [Voltaren Gel] 4 gm TOPICAL BID gm 09/07/22 [Rx] Divalproex ER [Depakote ER] 500 mg PO BID 30 Days #60 tab 09/07/22 [Rx] Ibuprofen [Motrin] 600 mg PO Q6HR PRN tab 09/07/22 [Rx] Melatonin 6 mg PO HS 30 Days #60 tab 09/07/22 [Rx] Nicotine 21Mg/24Hr Patch [Habitrol] 1 patch TRANSDERM DAILY 14 Days #14 patch 09/07/22 [Rx] fluPHENAZine [Prolixin] 3 mg PO BID 30 Days #180 tab 09/07/22 [Rx] rOPINIRole HCL [Requip] 0.25 mg PO HS 30 Days #30 tab 09/07/22 [Rx] traZODone HCL [Desyrel] 100 mg PO HS 30 Days #30 tab 09/07/22 [Rx] Follow up Appointment(s)/Referral(s): [facility] [Outside] - 1 Week Yohana Nguyen PAC [Primary Care Provider] - 1-2 days Activity/Diet/Wound Care/Special Instructions: Avoid the use of street drugs and alcohol. Take all medications as prescribed. When you are in need of refills on your medications, please contact your medical provider and/or outpatient psychiatrist to have this done. Please go to scheduled outpatient appointments for aftercare treatment. If symptoms return or become worse, call the crisis line at and/or go to the nearest emergency room for evaluation. Discharge Disposition: HOME SELF-CARE
== END 2022-09-07 13:29 | disposition home or self-care (01) | DRG 885 ==
LOC: EC 17:17 → 3MHU 22:34
PROVIDERS: ADMIT Psychiatry & Neurology Psychiatry; ATTEND Psychiatry & Neurology Psychiatry
DX: F29 Unspecified psychosis not due to a substance or known physiological condition (principal); I10 Essential (primary) hypertension; F12.10 Cannabis abuse, uncomplicated; F17.210 Nicotine dependence, cigarettes, uncomplicated; Z56.0 Unemployment, unspecified; G25.81 Restless legs syndrome; Z71.51 Drug abuse counseling and surveillance of drug abuser; Z28.310 Unvaccinated for COVID-19; Z20.822 Contact with and (suspected) exposure to COVID-19; Z28.21 Immunization not carried out because of patient refusal; Z81.8 Family history of other mental and behavioral disorders; Z71.3 Dietary counseling and surveillance; Z79.899 Other long term (current) drug therapy
CPT/HCPCS: 36415; 70450; 71046; 80053; 80061; 80306; 80320; 81001; 81025; 82075; 82140; 82803; 83036; 84443; 85025; 85610; 85730; 87636; 93005; 96360; 96361; 99285

== ENCOUNTER → 2023-08-15 | Outpatient (CLI) | payer BC ==
--- NOTE | 2023-08-16 10:00 | CA ---
Transthoracic Echo Report Name: Raegan Freeman Age: 58 Gender: F : 1965 Exam Date: 08/15/2023 13:47 Exam Location: [place] [facility] Ht (in): 62 Wt (lb): 215 Ordering Physician: Angel Turner DO Attending/Referring Phys: Nicole Rosa PAC Burner Tender Honey Bourne, LOUISE Procedure CPT: Indications: R22.43 SWELLING OF MAC LOWER EXTREMS Cardiac Hx: Technical Quality: Fair Contrast 1: Total Dose (mL): Contrast 2: Total Dose (mL): MEASUREMENTS (Male / Female) Normal Values 2D ECHO LV Diastolic Diameter PLAX 3.6 cm 4.2 - 5.9 / 3.9 - 5.3 cm LV Systolic Diameter PLAX 2.4 cm IVS Diastolic Thickness 0.9 cm 0.6 - 1.0 / 0.6 - 0.9 cm LVPW Diastolic Thickness 1.0 cm 0.6 - 1.0 / 0.6 - 0.9 cm LV Relative Wall Thickness 0.5 RV Internal Dim ED PLAX 3.0 cm LA Systolic Diameter LX 2.7 cm 3.0 - 4.0 / 2.7 - 3.8 cm M-MODE Aortic Root Diameter MM 3.0 cm LA Systolic Diameter MM 1.9 cm LA Ao Ratio MM 0.7 DOPPLER AV Peak Velocity 171.5 cm/s AV Peak Gradient 11.8 mmHg Mitral E Point Velocity 75.1 cm/s Mitral A Point Velocity 96.6 cm/s Mitral E to A Ratio 0.8 MV Deceleration Time 247.7 ms FINDINGS Left Ventricle Left ventricular ejection fraction is estimated at 60-65 %. Small left ventricular cavity. Normal left ventricular wall motion. Left ventricular wall thickness normal. Right Ventricle Normal right ventricular size and function. Unable to estimate the right ventricular systolic pressure. Right Atrium Normal right atrial size. No right atrial thrombus or mass seen. Left Atrium Normal left atrial size. No left atrial thrombus or mass present. Mitral Valve Structurally normal mitral valve. No mitral stenosis, regurgitation or prolapse. Aortic Valve Trileaflet aortic valve. No aortic valve stenosis or regurgitation. Tricuspid Valve Structurally normal tricuspid valve. No tricuspid stenosis, regurgitation or prolapse. Pulmonic Valve Structurally normal pulmonic valve. No pulmonic regurgitation. Pericardium No pericardial effusion. Aorta Normal size aortic root and proximal ascending aorta. CONCLUSIONS Technically difficult study Normal LV systolic function Poorly visualized valves Previewed by: Dr. Dimitri Perera MD (Electronically Signed) Final Date: 16 August 2023 09:59
== END | disposition home or self-care (01) ==
LOC: RADECHMAIN 13:29
PROVIDERS: ATTEND Family Medicine
DX: R22.43 Localized swelling, mass and lump, lower limb, bilateral (principal); Z82.49 Family history of ischemic heart disease and other diseases of the circulatory system
CPT/HCPCS: 93306